=== PATIENT | male | born 1940 | race Caucasian/White ===

== ENCOUNTER 2018-01-07 23:12 | Inpatient (IN) ==
--- NOTE | 2018-01-07 23:33 | Emergency Department Note ---
Disposition Clinical Impression: Elevated bilirubin, Elevated transaminase level Abdominal pain Qualifiers: Abdominal location: right upper quadrant Qualified Code(s): R10.11 - Right upper quadrant pain Disposition: Admitted As Inpatient Condition: Good Time of Disposition: 02:15 Abdominal Pain HPI - General Chief Complaint: ED Abdominal Pain Stated Complaint: abdominal pain Time Seen by Provider: 01/07/18 23:20 Source: patient, EMS Mode of arrival: EMS Limitations: no limitations Nursing Notes Reviewed: Yes Vital Signs Reviewed: Yes - History of Present Illness HPI Narrative: Patient is a 77-year-old male with previous history of OK and cardiac stent placement. He presents today due to generalized abdominal pain, nausea, vomiting, no bowel movement for 6 days. Family states that he was recently seen at an side facility presently 6 days ago for nausea, vomiting, abdominal discomfort. They state that basic blood work and imaging was performed at that time and nothing was found. He was diagnosed with a viral illness and sent home. He had gradual improvement until 2 days ago where he started having fevers, chills, temperatures up to 103 at home, coughing, nonproductive cough, generalized abdominal pain. He continued to have no bowel movement. Denies any overt chest pain, diarrhea, dysuria, hematuria. He does have a history of umbilical hernia but states that it has been soft. Pain Scale: 8 - Related Data Home Medications Medication Instructions Recorded Confirmed Aspirin 81 mg PO DAILY 12/21/15 01/08/18 Atorvastatin Calcium [Lipitor] 80 mg PO DAILY 12/21/15 01/08/18 Cholecalciferol (Vitamin D3) 2,000 unit PO DAILY 12/21/15 01/08/18 [Vitamin D3] Gabapentin [Neurontin] 300 mg PO HS 12/21/15 01/08/18 Ibuprofen [Advil] 400 mg PO DAILY 12/21/15 01/08/18 Isosorbide DInitrate [Isosorbide 30 mg PO DAILY 12/21/15 01/08/18 Dinitrate] Lisinopril [Zestril] 10 mg PO DAILY 12/21/15 01/08/18 Metoprolol [Lopressor] 50 mg PO DAILY 12/21/15 01/08/18 Zolpidem [Ambien] 10 mg PO HS PRN 12/21/15 01/08/18 metFORMIN [Glucophage] 500 mg PO DAILY 12/21/15 01/08/18 Previous Rx's Medication Instructions Recorded Oxycodone HCl/Acetaminophen 1 each PO Q6H PRN #15 tablet 12/23/15 [Percocet 5-325 mg Tablet] Allergies Allergy/AdvReac Type Severity Reaction Status Date / Time No Known Allergies Allergy Verified 12/19/15 16:15 All systems ED: reviewed and negative except as stated. Constitutional: Reports: fever, chills Cardiovascular: Denies: chest pain Respiratory: Reports: cough. Denies: dyspnea Gastrointestinal: Reports: abdominal pain, nausea, vomiting, constipation. Denies: diarrhea Genitourinary: Denies: urgency, dysuria Abdominal Pain PMH - Past Medical History Medical history: Reports: coronary artery disease, diabetes, hypertension, myocardial infarction, renal disease Male Surgical History: Reports: herniorrhaphy Psychiatric history: Reports: no psych history - Social History Smoking status: Never smoker Alcohol use: Reports: occasionally Drug use: Reports: none Physical Exam - General Limitations: no limitations General appearance: alert, other (actively nauseated) - Head Head exam: atraumatic, normocephalic, normal inspection - Eye Eye exam: Present: normal appearance, PERRL, EOMI - ENT ENT exam: normal exam, normal oropharynx, mucous membranes moist - Neck Neck exam: Present: normal inspection, full ROM, trachea midline - Chest Chest inspection: Present: normal inspection, symmetric chest wall rise - Respiratory Respiratory exam: Present: normal lung sounds bilaterally - Cardiovascular Cardiovascular exam: Present: regular rate, normal rhythm, normal heart sounds - Abdominal Exam Abdominal exam: Present: soft, tenderness (Generalized abdominal tenderness), other (Umbilical hernia present, soft, reducible). Absent: distention, guarding , rebound, rigidity, Escobedo's sign, tenderness at McBurney's Point - Extremities Exam Extremities exam: Present: normal inspection, full ROM. Absent: tenderness, pedal edema - Neurological Exam Neurological exam: Present: alert, oriented X3 - Psychiatric Psychiatric exam: Present: normal affect, normal mood - Skin Skin exam: Present: warm, dry, intact, normal color Course Course Narrative: Vitals within normal limits. Physical exam shows generalized abdominal tenderness. Patient is actively nauseous on exam. No bowel movement for 6 days. Currently concern for possible bowel obstruction. Basic labs, LFTs, lipase, and CT abd pelvis ordered. Zofran and fentanyl ordered for pain and nausea control. 02:07 LFTs and total bili elevated. There is concern for possible cholecystitis. I discussed the case with surgeon deputy commonwealth's attorney, Dr. Peterson. We went over her presentation, exam, lab findings. She does recommend patient be admitted to medicine at this time and she will act as a consult tomorrow morning. Of note, patient has seen Dr. Jim in the past several years ago, but surgeon choice was discussed with the patient, and patient has chosen to be patient of Dr. Peterson for this issue. Will admit to hospitalist for further care. Abdomen/Pelvis CT 01/08/18 00:00 IMPRESSION: No significant colonic stool burden is identified. No evidence of mechanical bowel obstruction. No evidence of focal bowel wall thickening. Lobulated and folded appearance of the gallbladder appears similar to previous examination. There appears to be soft tissue density at the gallbladder fundus, which was present on previous examination. Follow-up nonemergent right upper quadrant ultrasound is recommended to exclude a polyp. Fat containing umbilical hernia, with minimal outpouching of the underlying small bowel. No evidence of inflammation. Fat containing bilateral inguinal hernias. Colonic diverticulosis. No CT evidence of acute diverticulitis. Hepatic steatosis. D/ / Chris Xavier MD / Chris Xavier MD Interpreting Provider: Chris Xavier MD Vital Signs Temperature 98.4 F 01/07/18 23:15 Pulse Rate 83 01/07/18 23:15 Respiratory Rate 18 01/07/18 23:15 Blood Pressure 120/78 01/07/18 23:15 O2 Sat by Pulse Oximetry 95 01/07/18 23:15 Temperature 97.5 F L 01/08/18 03:35 Pulse Rate 75 01/08/18 03:35 Respiratory Rate 18 01/08/18 03:35 Blood Pressure 147/88 01/08/18 03:35 O2 Sat by Pulse Oximetry 92 01/08/18 03:35 Oxygen Delivery Oxygen Delivery Room Air Abdominal Pain - MDM Narrative Medical decision making narrative: Vitals within normal limits. Physical exam shows generalized abdominal tenderness. Patient is actively nauseous on exam. No bowel movement for 6 days. Currently concern for possible bowel obstruction. Basic labs, LFTs, lipase, and CT abd pelvis ordered. Zofran and fentanyl ordered for pain and nausea control. 02:07 LFTs and total bili elevated. There is concern for possible cholecystitis. I discussed the case with surgeon deputy commonwealth's attorney, Dr. Peterson. We went over her presentation, exam, lab findings. She does recommend patient be admitted to medicine at this time and she will act as a consult tomorrow morning. Of note, patient has seen Dr. Jim in the past several years ago, but surgeon choice was discussed with the patient, and patient has chosen to be patient of Dr. Peterson for this issue. Will admit to hospitalist for further care. - Medical Records Medical records reviewed: Yes I reviewed the patient's medical records. - Lab Data Lab results reviewed: Yes I reviewed the patient's lab results. Result diagrams: 01/07/18 23:40 01/07/18 23:40 Lab Results 01/07/18 01/07/18 01/07/18 Range/Units 23:40 23:40 23:40 WBC 3.8 L (4.3-11.1) K/mcL RBC 4.83 (4.19-5.50) M/mcL Hgb 15.1 (12.9-16.9) g/dL Hct 42.8 (37.5-50.1) % MCV 88.6 (83.0-100.0) fL MCH 31.3 (28.0-33.3) pg MCHC 35.3 (31.6-35.5) g/dL RDW 12.7 (11.5-14.5) % Plt Count 104 L (140-400) K/mcL MPV 9.8 (9.4-12.4) fL Immature Gran % 4.5 H (0-4) % Seg Neutrophils % 68.3 % Lymphocytes % 19.9 % Monocytes % 5.2 % Eosinophils % 0.8 % Basophils % 1.3 % Neutrophils # 2.6 (1.6-8.9) K/mcL Lymphocytes # 0.8 (0.6-4.6) K/mcL Monocytes # 0.2 (0.0-1.3) K/mcL Eosinophils # 0.0 (0.0-0.6) K/mcL Basophils # 0.1 (0.0-0.2) K/mcL Reactive Lymphocytes Present A (Not Present) Platelet Estimate Decreased L (Normal) Sodium 128 L (136-145) mEq/L Potassium 3.9 (3.5-5.1) mEq/L Chloride 100 (98-107) mEq/L Carbon Dioxide 18 L (23-29) mEq/L BUN 22 (8-23) mg/dL Creatinine 1.20 (0.70-1.30) mg/dL Est GFR ( Amer) > 60 (> 60) Est GFR (Non-Af Amer) 59 L (> 60) BUN/Creatinine Ratio 18 (6-26) Glucose 130 H (70-105) mg/dL Calculated Osmolality 271 L (280-300) Lactic Acid (0.5-2.2) mmol/L Calcium 8.8 (8.6-10.3) mg/dL Total Bilirubin 1.4 H (0.3-1.0) mg/dL Direct Bilirubin 0.3 H (0.0-0.2) mg/dL Indirect Bilirubin 1.1 (0.0-1.2) mg/dL AST 130 H (13-39) Units/L ALT 124 H (7-52) Units/L Alkaline Phosphatase 254 H (34-104) Units/L Troponin I < 0.03 (< 0.04) ng/mL Serum Total Protein 6.1 L (6.4-8.9) g/dL Albumin 3.7 (3.5-5.7) g/dL Globulin 2.4 (2.4-3.5) g/dL Albumin/Globulin Ratio 1.5 (1.1-2.2) Lipase 23 (11-82) Units/L Urine Color Dark Yellow (Yellow) Urine Clarity Clear (Clear) Urine pH 6.0 (5.0-8.0) pH Units Ur Specific Coello 1.022 (1.010-1.025) Urine Protein 30 H (Neg-Trace) mg/dL Urine Glucose (UA) Normal (Normal) mg/dL Urine Ketones Trace H (Negative) mg/dL Urine Blood Negative (Negative) Urine Nitrite Negative (Negative) Urine Bilirubin Small H (Negative) Urine Urobilinogen 4.0 H (Normal) mg/dL Ur Leukocyte Esterase Negative (Negative) Urine Microscopic RBC 3-5 H (0-3) per hpf Urine Microscopic WBC 0-3 (0-3) per hpf Ur Squamous Epith Cells Moderate H (None-Few) per lpf Urine Bacteria None Seen (None-Few) per hpf Hyaline Casts None Seen (None-Few) per lpf Ur Culture Indicated? NO (NO) 01/08/18 Range/Units 00:21 WBC (4.3-11.1) K/mcL RBC (4.19-5.50) M/mcL Hgb (12.9-16.9) g/dL Hct (37.5-50.1) % MCV (83.0-100.0) fL MCH (28.0-33.3) pg MCHC (31.6-35.5) g/dL RDW (11.5-14.5) % Plt Count (140-400) K/mcL MPV (9.4-12.4) fL Immature Gran % (0-4) % Seg Neutrophils % % Lymphocytes % % Monocytes % % Eosinophils % % Basophils % % Neutrophils # (1.6-8.9) K/mcL Lymphocytes # (0.6-4.6) K/mcL Monocytes # (0.0-1.3) K/mcL Eosinophils # (0.0-0.6) K/mcL Basophils # (0.0-0.2) K/mcL Reactive Lymphocytes (Not Present) Platelet Estimate (Normal) Sodium (136-145) mEq/L Potassium (3.5-5.1) mEq/L Chloride (98-107) mEq/L Carbon Dioxide (23-29) mEq/L BUN (8-23) mg/dL Creatinine (0.70-1.30) mg/dL Est GFR ( Amer) (> 60) Est GFR (Non-Af Amer) (> 60) BUN/Creatinine Ratio (6-26) Glucose (70-105) mg/dL Calculated Osmolality (280-300) Lactic Acid 1.6 (0.5-2.2) mmol/L Calcium (8.6-10.3) mg/dL Total Bilirubin (0.3-1.0) mg/dL Direct Bilirubin (0.0-0.2) mg/dL Indirect Bilirubin (0.0-1.2) mg/dL AST (13-39) Units/L ALT (7-52) Units/L Alkaline Phosphatase (34-104) Units/L Troponin I (< 0.04) ng/mL Serum Total Protein (6.4-8.9) g/dL Albumin (3.5-5.7) g/dL Globulin (2.4-3.5) g/dL Albumin/Globulin Ratio (1.1-2.2) Lipase (11-82) Units/L Urine Color (Yellow) Urine Clarity (Clear) Urine pH (5.0-8.0) pH Units Ur Specific Coello (1.010-1.025) Urine Protein (Neg-Trace) mg/dL Urine Glucose (UA) (Normal) mg/dL Urine Ketones (Negative) mg/dL Urine Blood (Negative) Urine Nitrite (Negative) Urine Bilirubin (Negative) Urine Urobilinogen (Normal) mg/dL Ur Leukocyte Esterase (Negative) Urine Microscopic RBC (0-3) per hpf Urine Microscopic WBC (0-3) per hpf Ur Squamous Epith Cells (None-Few) per lpf Urine Bacteria (None-Few) per hpf Hyaline Casts (None-Few) per lpf Ur Culture Indicated? (NO) - Radiology Data Radiology results reviewed: Yes I reviewed the patient's radiology results. - EKG Data EKG attestation: Yes I reviewed and interpreted this EKG. EKG results narrative: Normal sinus rhythm. Rate 82. NV 154. QRS 93. QTC 418. Normal axis. No acute ST elevation or depression. 01/07/2018 at 23:33. S.B.A.R. - S.B.A.R. Situation: Demographics, MOA Background: Presenting Complaint, Relevant PMH, Meds, & Allergies Assessment: Vital Signs, Course and respsone to treatment, Exam Concerns, Patient/Family Expectation, Pertinant Lab Results Recommendation: Barrier(s) to disposition, Recommendation based on pending studies, treatments, or consults Attestation Statement - Attestation Attestation: I examined this patient and my medical decision-making was reviewed with the Resident Physician. I agree with the documented findings, disposition and treatment plan as described except to the extent set forth below. Findings consistent with possible early acute cholecystitis. There is transaminitis as well as elevated bilirubin levels. This is beyond normal elevation. The patient will be admitted to the hospitalist team with surgical consultation. We did speak with the on-call surgeon.
[2018-01-07 23:51] LABS: Basophils # 0.1 K/mcL (0.0-0.2); Basophils % 1.3 %; Eosinophils % 0.8 %; Hematocrit 42.8 % (37.5-50.1); Hemoglobin 15.1 g/dL (12.9-16.9); Immature Granulocytes % 4.5 % (0-4); Lymphocytes # 0.8 K/mcL (0.6-4.6); Lymphocytes % 19.9 %; Mean Corpuscular HGB Conc 35.3 g/dL (31.6-35.5); Mean Corpuscular Hemoglobin 31.3 pg (28.0-33.3); Mean Corpuscular Volume 88.6 fL (83.0-100.0); Mean Platelet Volume 9.8 fL (9.4-12.4); Monocytes # 0.2 K/mcL (0.0-1.3); Monocytes % 5.2 %; Neutrophils # 2.6 K/mcL (1.6-8.9); Platelet Count 104 K/mcL (140-400); Red Blood Count 4.83 M/mcL (4.19-5.50); Red Cell Distribution Width 12.7 % (11.5-14.5); Segmented Neutrophils % 68.3 %
[2018-01-08 00:02] LABS: Bilirubin,Urine Small (Negative); Blood,Urine Negative (Negative); Clarity,Urine Clear (Clear); Color,Urine Dark Yellow (Yellow); Glucose,Urine (UA) Normal (Normal); Ketones,Urine Trace mg/dL (Negative); Leukocyte Esterase,Urine Negative (Negative); Nitrite,Urine Negative (Negative); Protein,Urine 30 mg/dL (Neg-Trace); Specific Gravity,Urine 1.022 (1.010-1.025)
[2018-01-08 00:04] LABS: Bacteria,Urine None Seen per hpf (None-Few); Hyaline Casts,Urine None Seen per lpf (None-Few); Squamous Epithelial Cell,Urine Moderate per lpf (None-Few); WBC,Urine 0-3 per hpf (0-3)
[2018-01-08 00:07] LABS: Reactive Lymphocytes Present (Not Present)
[2018-01-08 00:08] LABS: Platelet Estimate Decreased (Normal)
[2018-01-08 00:13] LABS: Alanine Aminotransferase 124 Units/L (7-52); Albumin 3.7 g/dL (3.5-5.7); Albumin/Globulin Ratio 1.5 (1.1-2.2); Alkaline Phosphatase 254 Units/L (34-104); Aspartate Amino Transferase 130 Units/L (13-39); BUN/Creatinine Ratio 18 (6-26); Bilirubin,Direct 0.3 mg/dL (0.0-0.2); Bilirubin,Indirect 1.1 mg/dL (0.0-1.2); Bilirubin,Total 1.4 mg/dL (0.3-1.0); Blood Urea Nitrogen 22 mg/dL (8-23); Calcium 8.8 mg/dL (8.6-10.3); Carbon Dioxide 18 mEq/L (23-29); Chloride 100 mEq/L (98-107); Globulin 2.4 g/dL (2.4-3.5); Glucose 130 mg/dL (70-105); Lipase 23 Units/L (11-82); Osmolality,Calculated 271 (280-300); Potassium 3.9 mEq/L (3.5-5.1); Sodium 128 mEq/L (136-145); Total Protein 6.1 g/dL (6.4-8.9); Troponin I < 0.03 ng/mL (< 0.04); eGFR For African Americans > 60 (> 60); eGFR For Non-African Americans 59 (> 60)
[2018-01-08] MEDS ORDERED: 0.9 % Sodium Chloride 1,000 ML ONE (00:48)
[2018-01-08] MEDS ORDERED: cefOXitin 2,000 MG in 0.9 % Sodium Chloride Mini Bag 100 ML IVP ONE (02:22)
[2018-01-08] MEDS: 0.9 % Sodium Chloride 1,000 ML IVC SCH (02:41)
[2018-01-08] MEDS ORDERED: Ondansetron 4 MG/2 ML VIAL IVP STA (03:07)
[2018-01-08] MEDS ORDERED: Ondansetron 4 MG/2 ML VIAL IVP PRN (03:07)
[2018-01-08] MEDS ORDERED: Naloxone 0.4 MG/ML INJ IVP PRN ×2 (03:08)
[2018-01-08] MEDS ORDERED: *HR* Metoprolol 5 MG/5 ML VIAL IVP PRN (03:22)
[2018-01-08] MEDS ORDERED: Dextrose Gel 15 GM/37.5 ML TUBE PO PRN ×2 (03:23)
[2018-01-08] MEDS ORDERED: D5% in Water 1,000 ML IVC PRN (03:23)
[2018-01-08] MEDS ORDERED: *HR* Dextrose 50 % in Water (Syg) 50 ML SYRINGE IVP PRN (03:23)
[2018-01-08] MEDS ORDERED: Pantoprazole 40 MG VIAL IVP STA (03:24)
[2018-01-08] MEDS: Insulin LISPRO 300 UNITS/3 ML VIAL SQ SCH ×4 (03:55→17:21)
[2018-01-08 07:08] LABS: Hematocrit 41.8 % (37.5-50.1); Mean Corpuscular HGB Conc 33.5 g/dL (31.6-35.5); Mean Corpuscular Hemoglobin 30.2 pg (28.0-33.3); Mean Corpuscular Volume 90.3 fL (83.0-100.0); Red Blood Count 4.63 M/mcL (4.19-5.50); Red Cell Distribution Width 12.9 % (11.5-14.5)
[2018-01-08 07:10] LABS: Platelet Count 96 K/mcL (140-400)
[2018-01-08 07:28] LABS: BUN/Creatinine Ratio 17 (6-26); Blood Urea Nitrogen 20 mg/dL (8-23); Calcium 8.3 mg/dL (8.6-10.3); Carbon Dioxide 21 mEq/L (23-29); Chloride 103 mEq/L (98-107); Glucose 98 mg/dL (70-105); Osmolality,Calculated 279 (280-300); Potassium 3.9 mEq/L (3.5-5.1); Sodium 133 mEq/L (136-145); eGFR For African Americans > 60 (> 60); eGFR For Non-African Americans > 60 (> 60)
--- NOTE | 2018-01-08 07:35 | Internal Med History&Physical ---
Date of Encounter: 01/08/18 Time of Encounter: 05:07 Internal Medicine - H&P: HPI Chief complaint: "Nauseous and not feeling good" Admitted From: Emergency Dept Plans for Post Hospital Care: Home History of present illness: Mr. Campos is a 77 year old male who presented to ED with worsening abdominal pain and nausea. He states that he starting having these symptoms about 1 week ago when he was at the [facility]. It got so severe today that he decided to come to the ED. He has a cardiac history, but he denies any chest pain today and troponin is WNL. He had a fever few days ago. Today, he denies chest pain , SOB, fever, chills, and focal neurologic deficits. Pain is better when lying in certain position. Pain is worse with palpation of abdomen. CT abdomen/ pelvis showed no bowel obstruction, but did show lobulated and folded appearance of the gallbladder similar to previous exam. There is a soft tissue density at gall bladder fundus. Only fat in umbilical hernia. Surgery was consulted by ED physician and will see him in AM in case he has cholecystitis. He got 1 dose of cefoxitin in ED. Past Med Surg Social Fam HX - Past Medical History Attestation: Yes The following information was validated with the patient. Medical history: coronary artery disease, diabetes, hypertension, myocardial infarction, renal disease Psychiatric history: no psych history - Past Surgical History Surgical History: orthopedic, other - Social History Smoking Status: Never smoker Smokeless Tobacco Status: No Alcohol use: occasionally Drug use: none - Family History Mother Hx Family Cancer: Yes - Additional Family History Additional family history: Family history reviewed with patient. Internal Medicine - H&P: Meds Aspirin 81 mg PO DAILY 12/21/15 [History] Atorvastatin Calcium [Lipitor] 80 mg PO DAILY 12/21/15 [History] Cholecalciferol (Vitamin D3) [Vitamin D3] 2,000 unit PO DAILY 12/21/15 [History] Gabapentin [Neurontin] 300 mg PO HS 12/21/15 [History] Ibuprofen [Advil] 400 mg PO DAILY 12/21/15 [History] Isosorbide DInitrate [Isosorbide Dinitrate] 30 mg PO DAILY 12/21/15 [History] Lisinopril [Zestril] 10 mg PO DAILY 12/21/15 [History] Metoprolol [Lopressor] 50 mg PO DAILY 12/21/15 [History] Zolpidem [Ambien] 10 mg PO HS PRN 12/21/15 [History] metFORMIN [Glucophage] 500 mg PO DAILY 12/21/15 [History] Oxycodone HCl/Acetaminophen [Percocet 5-325 mg Tablet] 1 each PO Q6H PRN #15 tablet 12/23/15 [Rx] 3 Allergy/AdvReac Type Severity Reaction Status Date / Time No Known Allergies Allergy Verified 12/19/15 16:15 All Systems PM: A 10-system review of systems was performed and is negative for pertinent findings except as documented above in the HPI. - Constitutional Vitals: Temp Pulse Resp BP Pulse Ox 98.8 F 78 16 129/79 91 01/08/18 06:20 01/08/18 06:20 01/08/18 06:20 01/08/18 06:20 01/08/18 06:20 General appearance: Present: cooperative, mild distress, A&O X 3, pleasant, answers questions appropriately Exam: Due to abdominal pain and nausea - Head Head exam: Present: atraumatic, normal inspection, normocephalic - Eye Eye exam: Present: EOMI, normal appearance, PERRL. Absent: conjunctival injection, nystagmus, scleral icterus - ENT ENT exam: Present: mucous membranes moist, normal external ear exam, normal oropharynx - Neck Neck exam general surgery: Present: supple, trachea midline. Absent: lymphadenopathy, tenderness, thyromegaly - Respiratory Respiratory exam: Present: CTAB. Absent: accessory muscle use, rales, rhonchi, wheezes Additional comments: Normal WOB - Cardiovascular Cardiovascular exam: Present: RRR, +S1, +S2. Absent: diastolic murmur, gallop, rubs, systolic murmur - GI/Abdominal GI/Abdominal exam: Present: hypoactive bowel sounds, soft. Absent: distended, hepatomegaly, mass, splenomegaly Additional comments: RUQ TTP without rebound and guarding - Neurological Exam Neurological exam: Present: alert, CN II-XII intact, oriented X3, no focal deficits, strengths equal and symetr throughout. Absent: altered, motor sensory deficit, facial droop, speech deficit - Psychiatric Psychiatric exam: Present: normal affect, normal mood. Absent: agitated, anxious, depressed - Skin Skin exam: Present: dry, intact, rash, warm. Absent: cyanosis Internal Med - H&P Results - Labs CBC & Chem 7: 01/08/18 05:00 01/07/18 23:40 Labs: Short CBC 01/08/18 Range/Units 05:00 WBC 3.2 L (4.3-11.1) K/mcL Hgb 14.0 (12.9-16.9) g/dL Hct 41.8 (37.5-50.1) % Plt Count 96 L (140-400) K/mcL - Assessment and plan (1) Acute cholecystitis Current Visit: Yes Status: Acute Assessment and plan: Admit as inpatient. General surgery consulted by ED; appreciate their help. Continue cefoxitin. Continue IVF. Keep NPO. Zofran IV PRN nausea/vomiting. IV protonix daily for GI prophylaxis. Sublingual oxycodone PRN pain. Will get non-emergent gallbladder/liver ultrasound as recommended by radiologist. Repeat labwork in AM. (2) Hyponatremia Current Visit: Yes Status: Acute Assessment and plan: NPO at this time, so fluid restricted. Continue IV NS at 125 ml/hr. Will check serial Na for now so as not to overcorrect. (3) HTN (hypertension) Current Visit: Yes Status: Chronic Assessment and plan: Holding home medications due to NPO. Will add a PRN lopressor IV for hypertension. Qualifiers: Hypertension type: essential hypertension Qualified Code(s): I10 - Essential (primary) hypertension (4) DM type 2 (diabetes mellitus, type 2) Current Visit: Yes Status: Chronic Assessment and plan: NPO for now in case needs surgery. Hold home medications. Start accuchecks and low dose SSI Q6H. Qualifiers: Diabetes mellitus superintendent container terminal insulin use: without prison use Diabetes mellitus complication status: with unspecified complications Qualified Code(s) : E11.8 - Type 2 diabetes mellitus with unspecified complications (5) Abdominal pain Current Visit: Yes Status: Acute Assessment and plan: Management as per above. Qualifiers: Abdominal location: right upper quadrant Qualified Code(s): R10.11 - Right upper quadrant pain (6) Elevated bilirubin Current Visit: Yes Status: Acute Assessment and plan: Management as per above. (7) Elevated transaminase level Current Visit: Yes Status: Acute Assessment and plan: Management as per above. (8) DVT prophylaxis Current Visit: Yes Status: Acute Assessment and plan: Hold anticoagulation for now in case he needs to go to surgery. Start SCDs. - Time Spent With Patient Total time spent is greater than 50% in coordination of care (as documented) at patient's floor/unit and/or counseling patient: less than 15 minutes
[2018-01-08 07:55] LABS: Lymphocytes # 0.7 K/mcL (0.6-4.6); Monocytes # 0.1 K/mcL (0.0-1.3); Neutrophils # 2.4 K/mcL (1.6-8.9); Platelet Estimate Slight Decrease (Normal)
[2018-01-08] MEDS: cefOXitin 1,000 MG in Water for inj. (sterile) 20 ML 10 ML IVPB SCH ×2 (10:16→17:40)
[2018-01-08 10:51] LABS: Albumin 3.2 g/dL (3.5-5.7); Albumin/Globulin Ratio 1.3 (1.1-2.2); Bilirubin,Direct 0.3 mg/dL (0.0-0.2); Bilirubin,Indirect 0.7 mg/dL (0.0-1.2); Globulin 2.5 g/dL (2.4-3.5); Total Protein 5.7 g/dL (6.4-8.9)
[2018-01-08 12:50] LABS: Estimated Average Glucose 166 mg/dl; Hemoglobin A1C 7.4 %
[2018-01-08 13:58] LABS: INR 1.1; Prothrombin Time 12.2 Seconds (9.4-12.1)
--- NOTE | 2018-01-08 14:34 | Internal Med Progress Note ---
<Mark Anthony Telles - Last Filed: 01/08/18 15:11> Date of Encounter: 01/08/18 Time of Encounter: 14:30 - Assessment and plan (1) Acute cholecystitis Current Visit: Yes Status: Suspected Assessment and plan: 77 from male presented with nausea vomiting, right upper quadrant abdominal pain Positive Escobedo's sign CT abdomen pelvis showed lobulated folded gallbladder appearance, hepatic steatosis Gallbladder ultrasound shows cholelithiasis without evidence of acute cholecystitis Suspected Elevated AST, ALTs, alk phosphatase. Lipase within normal limits. Awaiting surgery recommendations. (2) Elevated bilirubin Current Visit: Yes Status: Acute Assessment and plan: Likely secondary to above. (3) Hyponatremia Current Visit: Yes Status: Acute Assessment and plan: unclear etiology improving currently send urine sodium and osmolality continue to monitor (4) HTN (hypertension) Current Visit: Yes Status: Chronic Assessment and plan: continue home medications Qualifiers: Hypertension type: essential hypertension Qualified Code(s): I10 - Essential (primary) hypertension (5) DM type 2 (diabetes mellitus, type 2) Current Visit: Yes Status: Chronic Assessment and plan: NPO continue sliding scale insulin Q6h Qualifiers: Diabetes mellitus jail insulin use: without superintendent container terminal use Diabetes mellitus complication status: with unspecified complications Qualified Code(s) : E11.8 - Type 2 diabetes mellitus with unspecified complications (6) DVT prophylaxis Current Visit: Yes Status: Acute Assessment and plan: heparin sq (7) Chest pain Current Visit: Yes Status: Acute Assessment and plan: patient had chest pain this afternoon atypical troponon WNL EKG: NSR with out st-t wave elevation previous [facility] 08/17/2017 LVEF of 60-65% with mild left ventricular diastolic dysfunction, without wall motion abnormalities, concentric increase in left ventricular wall thickness, mild aortic regurgitation and dilated ascending aorta measuring 4.0 cm. plan: chest cta to assess ascending aortic aneurysm, stress test before undergoing any surgery stress test in AM. Continue aspirin, statin, Imdur, metoprolol, lisinopril. Qualifiers: Chest pain type: unspecified Qualified Code(s): R07.9 - Chest pain, unspecified - Time Spent With Patient Total time spent is greater than 50% in coordination of care (as documented) at patient's floor/unit and/or counseling patient: - Subjective Interval history: 77-year-old male presented with abdominal pain and nausea and vomiting. Since admission patient's symptoms have improved. Currently patient denies nausea vomiting. Has mild abdominal pain and right upper quadrant. Later in the afternoon around 1:30 PM patient reported chest pain to the nurse that radiated to the left side. Troponin was ordered and was 0.03. - Constitutional Vitals: Temp Pulse Resp BP Pulse Ox 98.2 F 74 16 124/79 93 01/08/18 10:25 01/08/18 10:25 01/08/18 10:25 01/08/18 10:25 01/08/18 10:25 General appearance: Present: cooperative, mild distress, A&O X 3, pleasant, answers questions appropriately - Other Additional findings: General: without distress HEENT: Head atraumatic, normocephalic, EOMI, PERRL, neck nontender to palpation , absent lymphadenopathy, Moist Mucous Membranes, Heart: Regular rate and rhythm with no murmur Lungs: Clear to auscultation bilaterally Abdomen: Soft nontender, distended, positive bowel sounds. Umbilical hernia. Skin: warm and dry, absent rash Extremities: Absent pedal edema, Neuro: Alert oriented 3 Vascular: Pedal and radial pulses 2 out of 4 Internal Medicine: Result - Labs CBC & Chem 7: 01/08/18 05:00 01/08/18 05:00 Labs: Short CBC 01/08/18 Range/Units 05:00 WBC 3.2 L (4.3-11.1) K/mcL Hgb 14.0 (12.9-16.9) g/dL Hct 41.8 (37.5-50.1) % Plt Count 96 L (140-400) K/mcL Neutrophils # 2.4 (1.6-8.9) K/mcL BMP 01/08/18 01/08/18 05:00 05:00 Sodium 134 L 133 L Potassium 3.9 Chloride 103 Carbon Dioxide 21 L BUN 20 Creatinine 1.16 Glucose 98 Calcium 8.3 L Cardiac Enzymes 01/08/18 Range/Units 13:39 Troponin I < 0.03 (< 0.04) ng/mL Liver Function 01/08/18 Range/Units 10:21 Total Bilirubin 1.0 (0.3-1.0) mg/dL Direct Bilirubin 0.3 H (0.0-0.2) mg/dL AST 96 H (13-39) Units/L ALT 99 H (7-52) Units/L Alkaline Phosphatase 204 H (34-104) Units/L Albumin 3.2 L (3.5-5.7) g/dL - ABG Interpretation ABG results: PT/INR, D-dimer PT 12.2 Seconds (9.4-12.1) H 01/08/18 13:39 - Impressions Impressions Gallbladder Ultrasound 01/08/18 08:10 IMPRESSION: Cholelithiasis without sonographic evidence of acute cholecystitis. Slightly increased echogenicity of the right kidney can be seen with medical renal disease. D/ / 01/08/2018 11:25:40 Trey Hampton MD / timothy Interpreting Provider: Trey Hampton MD Consult Discharge Plan - Plan Referrals: John Schumacher DO [Primary Care Provider] - <Howard Stark - Last Filed: 01/08/18 18:19> Date of Encounter: 01/08/18 - Assessment and plan (1) Acute cholecystitis Current Visit: Yes Status: Suspected (2) Hyponatremia Current Visit: Yes Status: Acute (3) HTN (hypertension) Current Visit: Yes Status: Chronic Qualifiers: Hypertension type: essential hypertension Qualified Code(s): I10 - Essential (primary) hypertension (4) DM type 2 (diabetes mellitus, type 2) Current Visit: Yes Status: Chronic Qualifiers: Diabetes mellitus jail insulin use: without superintendent container terminal use Diabetes mellitus complication status: with unspecified complications Qualified Code(s) : E11.8 - Type 2 diabetes mellitus with unspecified complications (5) DVT prophylaxis Current Visit: Yes Status: Acute (6) Chest pain Current Visit: Yes Status: Acute Qualifiers: Chest pain type: unspecified Qualified Code(s): R07.9 - Chest pain, unspecified (7) Elevated bilirubin Current Visit: Yes Status: Acute (8) Transaminitis Current Visit: Yes Status: Acute - Time Spent With Patient Total time spent is greater than 50% in coordination of care (as documented) at patient's floor/unit and/or counseling patient: - Constitutional Vitals: Temp Pulse Resp BP Pulse Ox 98.2 F 76 16 138/82 96 01/08/18 14:55 01/08/18 14:55 01/08/18 14:55 01/08/18 14:55 01/08/18 14:55 Internal Medicine: Result - Labs CBC & Chem 7: 01/08/18 05:00 01/08/18 15:38 Labs: Short CBC 01/08/18 Range/Units 05:00 WBC 3.2 L (4.3-11.1) K/mcL Hgb 14.0 (12.9-16.9) g/dL Hct 41.8 (37.5-50.1) % Plt Count 96 L (140-400) K/mcL Neutrophils # 2.4 (1.6-8.9) K/mcL BMP 01/08/18 01/08/18 01/08/18 05:00 05:00 15:38 Sodium 134 L 133 L 135 L Potassium 3.9 Chloride 103 Carbon Dioxide 21 L BUN 20 Creatinine 1.16 Glucose 98 Calcium 8.3 L Cardiac Enzymes 01/08/18 Range/Units 13:39 Troponin I < 0.03 (< 0.04) ng/mL Liver Function 01/08/18 Range/Units 10:21 Total Bilirubin 1.0 (0.3-1.0) mg/dL Direct Bilirubin 0.3 H (0.0-0.2) mg/dL AST 96 H (13-39) Units/L ALT 99 H (7-52) Units/L Alkaline Phosphatase 204 H (34-104) Units/L Albumin 3.2 L (3.5-5.7) g/dL - ABG Interpretation ABG results: PT/INR, D-dimer PT 12.2 Seconds (9.4-12.1) H 01/08/18 13:39 - Impressions Impressions Gallbladder Ultrasound 01/08/18 08:10 IMPRESSION: Cholelithiasis without sonographic evidence of acute cholecystitis. Slightly increased echogenicity of the right kidney can be seen with medical renal disease. D/ / 01/08/2018 11:25:40 Trey Hampton MD / timothy Interpreting Provider: Trey Hampton MD - Attending Attestation I examined this patient and my medical decision-making was reviewed with the Resident Physician on 01/08/18. I agree with the documented findings, disposition and treatment plan as described except to the extent set forth below. Mr Campos is currently admitted for possible cholecystitis. He remains moderate to high risk due to potential for worsening clinical status. Mr Campos is having some L chest and back pain. No fever. Hungry. No diarrhea. Has been taking 2000mg Tylenol at least three times daily for weeks ( no longer getting pain meds). Exam alert Comfortable at this time Mucus membranes dry Heart reg Lungs clear currently Abd distended Echo - 08/17 shows dilated aorta I/P 1 abd pain/chest pain - check CT of chest and aorta 2. possible cholecystitis 3. CAD Further diagnoses and plan as above.
[2018-01-08] MEDS ORDERED: Isovue-370 500 ML INFUS..BTL IV ONE (15:11)
--- NOTE | 2018-01-08 15:29 | General Surgery Consult Note ---
<Avi Cullen - Last Filed: 01/08/18 15:16> Date of Encounter: 01/08/18 Time of Encounter: 08:20 Assessment and Plan (1) Abdominal pain Current Visit: Yes Status: Acute Abdominal CT showed lobulated and folded appearanceof the gallbladder which prompted us to get an U/S of the gallbladder, showing evidence of cholelithiasis but without acute cholecystitis. He had an elevated Alk phos of 254 and AST of 130 and ALT of 124. On exam, patient did not exhibit any abdominal pain. A few hours after, patient proceeded to complain of chest pain. A stat EKG was done which showed no acute ischemic changes. A stat troponin was ordered which was negative. Given his cardiac history of prior WI and 2 coronary stents, it is recommended that cardiology become involved in this case for evaluation. We will go ahead and proceed with a HIDA scan to rule out acute cholecystitis. Abdomen/Pelvis CT 01/08/18 00:00 IMPRESSION: 1. No significant colonic stool burden is identified. No evidence of mechanical bowel obstruction. No evidence of focal bowel wall thickening. 2. Lobulated and folded appearance of the gallbladder appears similar to previous examination. There appears to be soft tissue density at the gallbladder fundus, which was present on previous examination. Follow-up nonemergent right upper quadrant ultrasound is recommended to exclude a polyp or other lesions. 3. Fat containing umbilical hernia, with minimal outpouching of the underlying small bowel. No evidence of inflammation. 4. Fat containing bilateral inguinal hernias. 5. Colonic diverticulosis. No CT evidence of acute diverticulitis. D/ / 01/08/2018 04:56:19 Chris Xavier MD / yer Interpreting Provider: Chris Xavier MD Gallbladder Ultrasound 01/08/18 08:10 IMPRESSION: Cholelithiasis without sonographic evidence of acute cholecystitis. Slightly increased echogenicity of the right kidney can be seen with medical renal disease. D/ / 01/08/2018 11:25:40 Trey Hampton MD / timothy Interpreting Provider: Trey Hampton MD Qualifiers: Abdominal location: right upper quadrant Qualified Code(s): R10.11 - Right upper quadrant pain (2) Chest pain Current Visit: Yes Status: Acute See plan above. 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 Patient states that about 1 week ago he was at the [place] on vacation when he suddenly started to experience abdominal pain and nausea. He denies any vomiting. He denies any post-prandial pain. He went to the hospital there where an u/s was performed and found that he had gallstones present. They recommended that ramya f/u with outpatient. Patient says that he also had a fever around that time, being 104 F. Right now he denies any nausea, vomiting, or chest pain. He admits to some minor SOB with exertion. He denies any diarrhea. Patient also admits to some dysphagia (to both solid and liquids) for the past 6 months. Last EGD was over 10 years ago and last colonoscopy was 5 years ago. Past Med Surg Social Fam HX - Past Medical History Medical history: coronary artery disease, diabetes, hypertension, myocardial infarction, renal disease Psychiatric history: no psych history - Past Surgical History Surgical History: orthopedic, other - Social History Smoking Status: Never smoker Smokeless Tobacco Status: No Alcohol use: occasionally Drug use: none - Family History Mother Hx Family Cancer: Yes Medications and Allergies Aspirin 81 mg PO DAILY 12/21/15 [History] Atorvastatin Calcium [Lipitor] 80 mg PO DAILY 12/21/15 [History] Cholecalciferol (Vitamin D3) [Vitamin D3] 2,000 unit PO DAILY 12/21/15 [History] Gabapentin [Neurontin] 300 mg PO TID 12/21/15 [History] Ibuprofen [Advil] 400 mg PO DAILY PRN 12/21/15 [History] Lisinopril [Zestril] 10 mg PO DAILY 12/21/15 [History] Zolpidem [Ambien] 10 mg PO HS PRN 12/21/15 [History] metFORMIN [Glucophage] 500 mg PO DAILY 12/21/15 [History] Isosorbide MONOnitrate (24 HR) [Imdur] 30 mg PO DAILY 01/08/18 [History] Metoprolol XL (24 HR) Succ [Toprol XL] 50 mg PO DAILY 01/08/18 [History] Omeprazole [PriLOSEC] 20 mg PO DAILY 01/08/18 [History] Oxycodone HCl/Acetaminophen [Percocet 5-325 mg Tablet] 1 tab PO DAILY PRN [History] 3 Allergy/AdvReac Type Severity Reaction Status Date / Time No Known Allergies Allergy Verified 12/19/15 16:15 Review of Systems All systems PM: The remainder of the systems were reviewed and are negative - Gastrointestinal abdominal pain, nausea, no diarrhea, no vomiting General Surgery Exam VITAL SIGNS: Reviewed. See [facility] GENERAL: no apparent distress. HEENT: [Normocephalic, PER, EOMi, oropharynx pink/moist, no JVD noted.] CV: b/l rad pulses 2+, RRR, no murmurs or gallops, no JVD RESPIRATORY: CTAB without wheezes, rales, or rhonchi ABD: soft, , non-tender, no rebound/guarding/rigidity, no peritoneal signs EXTREMITY: grossly normal motor function, no pedal edema, peripheral pulses 2+ b /l NEUROLOGIC EXAM: AOx3, obeys commands, no speech deficits. PSYCHIATRIC: normal mood and affect SKIN: no gross lesions, rashes, or skin changes Initial Vital Signs Temp Pulse Resp BP Pulse Ox 98.4 F 83 18 120/78 95 01/07/18 23:15 01/07/18 23:15 01/07/18 23:15 01/07/18 23:15 01/07/18 23:15 Exam Initial Vital Signs Temp Pulse Resp BP Pulse Ox 98.4 F 83 18 120/78 95 01/07/18 23:15 01/07/18 23:15 01/07/18 23:15 01/07/18 23:15 01/07/18 23:15 Results - Labs 01/08/18 05:00 01/08/18 05:00 Abnormal lab results WBC 3.2 K/mcL (4.3-11.1) L 01/08/18 05:00 Plt Count 96 K/mcL (140-400) L 01/08/18 05:00 Immature Gran % 4.5 % (0-4) H 01/07/18 23:40 Band Neutrophils % 6.0 % (0-4) H 01/08/18 05:00 Reactive Lymphocytes Present (Not Present) A 01/07/18 23:40 Platelet Estimate Slight Decrease (Normal) L 01/08/18 05:00 PT 12.2 Seconds (9.4-12.1) H 01/08/18 13:39 Sodium 133 mEq/L (136-145) L 01/08/18 05:00 Carbon Dioxide 21 mEq/L (23-29) L 01/08/18 05:00 Hemoglobin A1c 7.4 % (-5.6) H 01/08/18 05:00 Calculated Osmolality 279 (280-300) L 01/08/18 05:00 Calcium 8.3 mg/dL (8.6-10.3) L 01/08/18 05:00 Direct Bilirubin 0.3 mg/dL (0.0-0.2) H 01/08/18 10:21 AST 96 Units/L (13-39) H 01/08/18 10:21 ALT 99 Units/L (7-52) H 01/08/18 10:21 Alkaline Phosphatase 204 Units/L (34-104) H 01/08/18 10:21 Serum Total Protein 5.7 g/dL (6.4-8.9) L 01/08/18 10:21 Albumin 3.2 g/dL (3.5-5.7) L 01/08/18 10:21 Urine Protein 30 mg/dL (Neg-Trace) H 01/07/18 23:40 Urine Ketones Trace mg/dL (Negative) H 01/07/18 23:40 Urine Bilirubin Small (Negative) H 01/07/18 23:40 Urine Urobilinogen 4.0 mg/dL (Normal) H 01/07/18 23:40 Urine Microscopic RBC 3-5 per hpf (0-3) H 01/07/18 23:40 Ur Squamous Epith Cells Moderate per lpf (None-Few) H 01/07/18 23:40 Diabetes panel 01/08/18 01/08/18 01/08/18 Range/Units 05:00 05:00 05:00 Sodium 134 L 133 L (136-145) mEq/L Potassium 3.9 (3.5-5.1) mEq/L Chloride 103 (98-107) mEq/L Carbon Dioxide 21 L (23-29) mEq/L BUN 20 (8-23) mg/dL Creatinine 1.16 (0.70-1.30) mg/dL Glucose 98 (70-105) mg/dL Hemoglobin A1c 7.4 H ( - 5.6) % Calcium 8.3 L (8.6-10.3) mg/dL AST (13-39) Units/L ALT (7-52) Units/L Alkaline Phosphatase (34-104) Units/L Albumin (3.5-5.7) g/dL 01/08/18 Range/Units 10:21 Sodium (136-145) mEq/L Potassium (3.5-5.1) mEq/L Chloride (98-107) mEq/L Carbon Dioxide (23-29) mEq/L BUN (8-23) mg/dL Creatinine (0.70-1.30) mg/dL Glucose (70-105) mg/dL Hemoglobin A1c ( - 5.6) % Calcium (8.6-10.3) mg/dL AST 96 H (13-39) Units/L ALT 99 H (7-52) Units/L Alkaline Phosphatase 204 H (34-104) Units/L Albumin 3.2 L (3.5-5.7) g/dL Calcium panel 01/08/18 01/08/18 Range/Units 05:00 10:21 Calcium 8.3 L (8.6-10.3) mg/dL Albumin 3.2 L (3.5-5.7) g/dL Pituitary panel 01/08/18 01/08/18 Range/Units 05:00 05:00 Sodium 134 L 133 L (136-145) mEq/L Potassium 3.9 (3.5-5.1) mEq/L Chloride 103 (98-107) mEq/L Carbon Dioxide 21 L (23-29) mEq/L BUN 20 (8-23) mg/dL Creatinine 1.16 (0.70-1.30) mg/dL Glucose 98 (70-105) mg/dL Calcium 8.3 L (8.6-10.3) mg/dL Adrenal panel 01/08/18 01/08/18 01/08/18 Range/Units 05:00 05:00 10:21 Sodium 134 L 133 L (136-145) mEq/L Potassium 3.9 (3.5-5.1) mEq/L Chloride 103 (98-107) mEq/L Carbon Dioxide 21 L (23-29) mEq/L BUN 20 (8-23) mg/dL Creatinine 1.16 (0.70-1.30) mg/dL Glucose 98 (70-105) mg/dL Calcium 8.3 L (8.6-10.3) mg/dL Total Bilirubin 1.0 (0.3-1.0) mg/dL AST 96 H (13-39) Units/L ALT 99 H (7-52) Units/L Alkaline Phosphatase 204 H (34-104) Units/L Albumin 3.2 L (3.5-5.7) g/dL All other labs normal. Consult Discharge Plan - Plan Referrals: John Schumacher DO [Primary Care Provider] - <Ariadne Peterson - Last Filed: 01/08/18 15:59> Date of Encounter: 01/08/18 Time of Encounter: 12:00 Assessment and Plan (1) Elevated LFTs Current Visit: Yes Status: Acute given patients complaints of generalized abdominal pain, nausea but no RUQ pain , elevated lfts and cholelithiasis, will check HIDA (2) Abdominal pain Current Visit: Yes Status: Acute Qualifiers: Abdominal location: right upper quadrant Qualified Code(s): R10.11 - Right upper quadrant pain (3) Chest pain Current Visit: Yes Status: Acute will ask cardiology to see patient due to chest pain and dyspnea, history of CAD /W[place], cardiac stents x 2 Qualifiers: Chest pain type: unspecified Qualified Code(s): R07.9 - Chest pain, unspecified (4) DM type 2 (diabetes mellitus, type 2) Current Visit: Yes Status: Chronic [place], [facility] [place] manage Qualifiers: Diabetes mellitus intermediate insulin use: without intermediate use Diabetes mellitus complication status: with unspecified complications Qualified Code(s) : E11.8 - Type 2 diabetes mellitus with unspecified complications (5) HTN (hypertension) Current Visit: Yes Status: Chronic controlled hospitalist to manage Qualifiers: Hypertension type: essential hypertension Qualified Code(s): I10 - Essential (primary) hypertension History of Present Illness History of present illness: Patient with complaints of central chest pain when I walked into room to evaluate. Was c/o some shortness of breath. Denies current nausea. No chest pain radiation He has been having fever and nausea with dry heaves for about a week (since this past tuesday). Started when on vacation in [place] this past tuesday. started having severe nausea and dry heaves and diffuse abdominal pain, sharp. He went to the ed in [facility] and states had the same workup that has been done here in the hospital. Since coming home the abdominal pain has improved but still have persistent nausea without emesis. Denies diarrhea. Denies any RUQ abdominal pain. CT abd/pelvis showed " Mild intrahepatic biliary ductal dilatation. Somewhat lobulated and distended appearance of the gallbladder. No calcified gallstones." US of gallbladder was done which showed "No gallbladder wall thickening. Mobile gallstones are seen. No sonographic Escobedo 's sign. No pericholecystic fluid. CBD 5 mm". T bili 1.4, D bili 0.3, I bili 1.1, ast/alt 130/124, alk phos 254 Past Med Surg Social Fam HX - Past Surgical History Surgical History: angioplasty/stent Review of Systems All systems PM: reviewed and no additional remarkable complaints except as stated All systems PM: The remainder of the systems were reviewed and are negative General Surgery Exam Initial Vital Signs Temp Pulse Resp BP Pulse Ox 98.4 F 83 18 120/78 95 01/07/18 23:15 01/07/18 23:15 01/07/18 23:15 01/07/18 23:15 01/07/18 23:15 - General physical appearance well developed, well nourished, moderate distress - Eyes PERRL, normal ocular movement - ENT normal mucosa, normocephalic - Neck trachea midline - Respiratory normal expansion, other (dyspnea) - Cardiovascular Cardiovascular exam: Present: RRR, no murmurs/rubs/gallops - Abdomen Abdomen general surgery: Present: bowel sounds present, soft, non tender. Absent: distended, guarding, rebound - Integumentary Integumentary general surgery: Present: warm and dry, no abnormal pigmentation - Neurologic Present: CN 2-12 grossly intact - Musculoskeletal Present: normal posture - Psychiatric Psychiatric general surgery: Present: A&Ox3, speech is normal Exam Initial Vital Signs Temp Pulse Resp BP Pulse Ox 98.4 F 83 18 120/78 95 01/07/18 23:15 01/07/18 23:15 01/07/18 23:15 01/07/18 23:15 01/07/18 23:15 Results - Labs 01/08/18 05:00 01/08/18 05:00 Vital Signs Temp Pulse Resp BP Pulse Ox 01/08/18 14:55 98.2 F 76 16 138/82 96 01/08/18 10:25 98.2 F 74 16 124/79 93 01/08/18 06:20 98.8 F 78 16 129/79 91 01/08/18 03:35 97.5 F L 75 18 147/88 92 01/08/18 02:57 82 18 158/88 95 01/08/18 00:53 78 20 154/84 96 01/08/18 00:10 78 18 116/73 95 01/07/18 23:15 98.4 F 83 18 120/78 95 Intake and Output 01/07/18 01/08/18 01/08/18 23:59 07:59 15:59 Intake Total 1000 / 1000 0 / 0 Output Total 700 / 700 550 / 550 Balance 300 / 300 -550 / -550 Intake: IV Fluids 1000 / 1000 0.9 % Sodium Chloride 1,000 ML 1000 / 1000 @ 0 mls/hr .ROUTE .[facility] Rx#:[id number] Oral 0 / 0 Output: Urine 700 / 700 550 / 550 Other: Meal npo Percent of Meal Consumed 0% Stool Characteristics Normal for Patient Stool Color Brown Weight 111.13 kg 111.8 kg Blood Glucose* 102 99 Patient Weight 01/08/18 23:59 Weight 111.8 kg Short CBC 01/08/18 01/07/18 Range/Units 05:00 23:40 WBC 3.2 L 3.8 L (4.3-11.1) K/mcL Hgb 14.0 15.1 (12.9-16.9) g/dL Hct 41.8 42.8 (37.5-50.1) % Plt Count 96 L 104 L (140-400) K/mcL Neutrophils # 2.4 2.6 (1.6-8.9) K/mcL BMP 01/08/18 01/08/18 01/07/18 Range/Units 05:00 05:00 23:40 Sodium 133 L 134 L 128 L (136-145) mEq/L Potassium 3.9 3.9 (3.5-5.1) mEq/L Chloride 103 100 (98-107) mEq/L Carbon Dioxide 21 L 18 L (23-29) mEq/L BUN 20 22 (8-23) mg/dL Creatinine 1.16 1.20 (0.70-1.30) mg/dL Glucose 98 130 H (70-105) mg/dL Calcium 8.3 L 8.8 (8.6-10.3) mg/dL Cardiac Enzymes 01/08/18 01/07/18 Range/Units 13:39 23:40 Troponin I < 0.03 < 0.03 (< 0.04) ng/mL Liver Function 01/08/18 01/07/18 Range/Units 10:21 23:40 Total Bilirubin 1.0 1.4 H (0.3-1.0) mg/dL Direct Bilirubin 0.3 H 0.3 H (0.0-0.2) mg/dL AST 96 H 130 H (13-39) Units/L ALT 99 H 124 H (7-52) Units/L Alkaline Phosphatase 204 H 254 H (34-104) Units/L Albumin 3.2 L 3.7 (3.5-5.7) g/dL Urine 01/07/18 Range/Units 23:40 Urine Color Dark Yellow (Yellow) Urine Clarity Clear (Clear) Urine pH 6.0 (5.0-8.0) pH Units Ur Specific [place] 1.022 (1.010-1.025) Urine Protein 30 H (Neg-Trace) mg/dL Urine Glucose (UA) Normal (Normal) mg/dL - Imaging CT scan - abdomen: report reviewed, image reviewed CT scan - pelvis: report reviewed, image reviewed
[2018-01-08] MEDS: Gabapentin 300 MG CAPSULE PO SCH ×2 (17:39→21:05)
[2018-01-08] MEDS: *HR* Heparin 5,000 UNIT/ML VIAL SQ SCH (21:06)
[2018-01-09] MEDS: Insulin LISPRO 300 UNITS/3 ML VIAL SQ SCH ×4 (00:18→17:31)
[2018-01-09] MEDS: cefOXitin 1,000 MG in Water for inj. (sterile) 20 ML 10 ML IVPB SCH ×3 (02:18→17:31)
[2018-01-09] MEDS: 0.9 % Sodium Chloride 1,000 ML IVC SCH (02:25)
[2018-01-09] MEDS ORDERED: Regadenoson 0.4 MG/5 ML SYRINGE IVP ONE (05:34)
[2018-01-09] MEDS: Pantoprazole 40 MG VIAL IVP SCH (06:02)
[2018-01-09] MEDS: *HR* Heparin 5,000 UNIT/ML VIAL SQ SCH ×3 (06:02→20:38)
[2018-01-09] MEDS: OXYCODONE Oral CONC 10 MG/0.5 ML ORAL.SYG SL PRN ×3 (06:09→17:36)
[2018-01-09] MEDS: Gabapentin 300 MG CAPSULE PO SCH ×3 (10:28→20:38)
[2018-01-09] MEDS: Isosorbide MONOnitrate (24 HR) 30 MG TAB.ER.24H PO SCH (10:28)
[2018-01-09] MEDS: Aspirin 81 MG TAB.CHEW PO SCH (10:29)
[2018-01-09] MEDS: Metoprolol XL (24 HR) Succ 50 MG TAB.ER.24H PO SCH (10:37)
--- NOTE | 2018-01-09 10:49 | Internal Med Progress Note ---
<Mark Anthony Telles - Last Filed: 01/09/18 12:53> Date of Encounter: 01/09/18 Time of Encounter: 10:47 - Assessment and plan (1) Acute cholecystitis Current Visit: Yes Status: Suspected Assessment and plan: 77 from male presented with nausea vomiting, right upper quadrant abdominal pain Positive Escobedo's sign CT abdomen pelvis showed lobulated folded gallbladder appearance, hepatic steatosis Gallbladder ultrasound shows cholelithiasis without evidence of acute cholecystitis Suspected Elevated AST, ALTs, alk phosphatase. Lipase within normal limits. Surgery would like cardiac clearance before cholecystectomy. The patient had stress test this morning. Has to wait 48 hours before HIDA scan can be done. patient requested Dr. Jim as surgeon. [facility] has signed off. (2) Elevated bilirubin Current Visit: Yes Status: Acute (3) Hyponatremia Current Visit: Yes Status: Acute Assessment and plan: improving. continue to monitor (4) HTN (hypertension) Current Visit: Yes Status: Chronic Assessment and plan: continue home medications Qualifiers: Hypertension type: essential hypertension Qualified Code(s): I10 - Essential (primary) hypertension (5) DM type 2 (diabetes mellitus, type 2) Current Visit: Yes Status: Chronic Assessment and plan: cardiac ADA diet glucose controlled. insulin sliding scale Qualifiers: Diabetes mellitus usp insulin use: without termite helper use Diabetes mellitus complication status: with unspecified complications Qualified Code(s) : E11.8 - Type 2 diabetes mellitus with unspecified complications (6) DVT prophylaxis Current Visit: Yes Status: Acute Assessment and plan: heparin sq (7) Chest pain Current Visit: Yes Status: Resolved Assessment and plan: patient had chest pain this afternoon atypical troponon WNL EKG: NSR with out st-t wave elevation previous [facility] 08/17/2017 LVEF of 60-65% with mild left ventricular diastolic dysfunction, without wall motion abnormalities, concentric increase in left ventricular wall thickness, mild aortic regurgitation and dilated ascending aorta measuring 4.0 cm. New TTE pending plan: chest cta negative for dissection or worsening ascending aortic aneurism stress test negative for ischemia cardiology reports patient intermediate risk for angélica-operative cardiovascular complication Continue aspirin, statin, Imdur, metoprolol, lisinopril. Qualifiers: Chest pain type: unspecified Qualified Code(s): R07.9 - Chest pain, unspecified - Time Spent With Patient Total time spent is greater than 50% in coordination of care (as documented) at patient's floor/unit and/or counseling patient: - Subjective Interval history: Patient was having anxiety attack this morning. He is crying about not being able to eat for the past week. He is also upset that he has not slept well overnight. Patient had stress test this morning and report is pending. He reports some mild abdominal pain. He denies chest pain, shortness of breath, nausea, vomiting. - Constitutional Vitals: Temp Pulse Resp BP Pulse Ox 96.6 F L 82 15 113/78 97 01/09/18 06:40 01/09/18 06:40 01/09/18 06:40 01/09/18 06:40 01/09/18 06:40 General appearance: Present: cooperative, mild distress, A&O X 3, pleasant, answers questions appropriately - Other Additional findings: General: Crying, anxious Heart: Regular rate and rhythm with no murmur Lungs: Clear to auscultation bilaterally Abdomen: Soft nontender, distended, positive bowel sounds. Umbilical hernia. Skin: warm and dry, absent rash Extremities: Absent pedal edema, Neuro: Alert oriented 3 Vascular: Pedal and radial pulses 2 out of 4 Internal Medicine: Result - Labs CBC & Chem 7: 01/08/18 05:00 01/08/18 22:36 Labs: BMP 01/08/18 01/08/18 15:38 22:36 Sodium 135 L 133 L Cardiac Enzymes 01/08/18 Range/Units 13:39 Troponin I < 0.03 (< 0.04) ng/mL Liver Function 01/08/18 Range/Units 10:21 Total Bilirubin 1.0 (0.3-1.0) mg/dL Direct Bilirubin 0.3 H (0.0-0.2) mg/dL AST 96 H (13-39) Units/L ALT 99 H (7-52) Units/L Alkaline Phosphatase 204 H (34-104) Units/L Albumin 3.2 L (3.5-5.7) g/dL - ABG Interpretation ABG results: PT/INR, D-dimer PT 12.2 Seconds (9.4-12.1) H 01/08/18 13:39 - Impressions Impressions Gallbladder Ultrasound 01/08/18 08:10 IMPRESSION: Cholelithiasis without sonographic evidence of acute cholecystitis. Slightly increased echogenicity of the right kidney can be seen with medical renal disease. D/ / 01/08/2018 11:25:40 Trey Hampton MD / [facility] Interpreting Provider: Trey Hampton MD Abdomen/Pelvis CTA 01/08/18 15:11 IMPRESSION: 1. No evidence of aortic dissection. 2. Coronary atherosclerosis. 3. Multilevel degenerative changes in the lumbar spine with postoperative changes of attempted fusion from L3 to S1. 4. Hepatic steatosis. D/ : / 01/08/2018 19:43:08 Lamont Almanza MD / lio Interpreting Provider: Lamont Almanza MD Chest CTA 01/08/18 15:11 IMPRESSION: 1. No evidence of aortic dissection. 2. Coronary atherosclerosis. 3. Multilevel degenerative changes in the lumbar spine with postoperative changes of attempted fusion from L3 to S1. 4. Hepatic steatosis. D/ : / 01/08/2018 19:43:08 Lamont Almanza MD / [facility] Interpreting Provider: Lamont Almanza MD Consult Discharge Plan - Plan Referrals: John Schumacher DO [Primary Care Provider] - 01/13/18 1:45 pm <Howard Stark - Last Filed: 01/09/18 17:30> Date of Encounter: 01/09/18 - Assessment and plan (1) Acute cholecystitis Current Visit: Yes Status: Suspected (2) Biliary colic Current Visit: Yes Status: Acute (3) Hyponatremia Current Visit: Yes Status: Resolved (4) HTN (hypertension) Current Visit: Yes Status: Chronic Qualifiers: Hypertension type: essential hypertension Qualified Code(s): I10 - Essential (primary) hypertension (5) DM type 2 (diabetes mellitus, type 2) Current Visit: Yes Status: Chronic Qualifiers: Diabetes mellitus usp insulin use: without usp use Diabetes mellitus complication status: with unspecified complications Qualified Code(s) : E11.8 - Type 2 diabetes mellitus with unspecified complications (6) Chest pain Current Visit: Yes Status: Resolved Qualifiers: Chest pain type: unspecified Qualified Code(s): R07.9 - Chest pain, unspecified (7) DVT prophylaxis Current Visit: Yes Status: Acute - Time Spent With Patient Total time spent is greater than 50% in coordination of care (as documented) at patient's floor/unit and/or counseling patient: - Constitutional Vitals: Temp Pulse Resp BP Pulse Ox 98.5 F 72 22 105/64 91 01/09/18 15:29 01/09/18 15:29 01/09/18 15:29 01/09/18 15:29 01/09/18 15:29 Internal Medicine: Result - Labs CBC & Chem 7: 01/08/18 05:00 01/09/18 11:51 Labs: BMP 01/08/18 01/09/18 22:36 11:51 Sodium 133 L 137 Potassium 3.5 Chloride 107 Carbon Dioxide 18 L BUN 20 Creatinine 1.09 Glucose 155 H Calcium 9.0 Liver Function 01/09/18 Range/Units 11:51 Total Bilirubin 1.3 H (0.3-1.0) mg/dL Direct Bilirubin 0.4 H (0.0-0.2) mg/dL AST 97 H (13-39) Units/L ALT 98 H (7-52) Units/L Alkaline Phosphatase 223 H (34-104) Units/L Albumin 3.6 (3.5-5.7) g/dL - ABG Interpretation ABG results: PT/INR, D-dimer PT 12.2 Seconds (9.4-12.1) H 01/08/18 13:39 - Impressions Impressions Abdomen/Pelvis CTA 01/08/18 15:11 IMPRESSION: 1. No evidence of aortic dissection. 2. Coronary atherosclerosis. 3. Multilevel degenerative changes in the lumbar spine with postoperative changes of attempted fusion from L3 to S1. 4. Hepatic steatosis. D/ / 01/08/2018 19:43:08 Lamont Almanza MD / [facility] Interpreting Provider: Lamont Almanza MD Chest CTA 01/08/18 15:11 IMPRESSION: 1. No evidence of aortic dissection. 2. Coronary atherosclerosis. 3. Multilevel degenerative changes in the lumbar spine with postoperative changes of attempted fusion from L3 to S1. 4. Hepatic steatosis. D/ / 01/08/2018 19:43:08 Lamont Almanza MD / lio Interpreting Provider: Lamont Almanza MD - Attending Attestation I examined this patient and my medical decision-making was reviewed with the Resident Physician on 01/09/18. I agree with the documented findings, disposition and treatment plan as described except to the extent set forth below. Mr Campos is currently admitted for abdominal pain and concern for cholecystis. He remains moderate to high risk due to potential for worsening clinical status. Mr Campos is resting better. Pain seems to be improved at this time. No fever or chills. Cardiac work up negative. To have yuri tomorrow. Exam alert Comfortable Mucus membranes dry Heart distant and reg No wheeze Abd soft and nontender now I/P 1. Cholelithiasis 2. biliary dyskinesia Plan lap yuri tomorrow. Further diagnoses and plan as above.
--- NOTE | 2018-01-09 11:01 | General Surgery Progress Note ---
Date of Encounter: 01/09/18 Time of Encounter: 10:40 - Assessment and Plan (1) Abdominal pain Current Visit: Yes Status: Acute Abdominal CT showed lobulated and folded appearanceof the gallbladder which prompted us to get an U/S of the gallbladder, showing evidence of cholelithiasis but without acute cholecystitis. On admission, he had an elevated Alk phos of 254 and AST of 130 and ALT of 124. Of note patient does state that he has been taking considerable Tylenol for his pain since his PCP stopped prescribing him narcotics for his pain. This can possibly explain the elevation in his LFTs. When seen today patient denies any abdominal pain, chest pain, or shortness of breath. Nuclear stress test results: Perfusion imaging was negative for ischemia or infarct. Inferior wall artifact. Pharmacologic stress ECG is negative for ischemia at level of heart rate achieved. No appreciable change from baseline ECG. Gated EF = 66%. Patient will need to have a cardiac surgical risk evaluation and a HIDA scan performed before cholecystectomy can be considered. Since patient is currently displaying any signs of abdominal pain, nausea, or vomiting, we recommend that he transition to a low-fat diet and see if that can improve his symptoms. If he is able to tolerate the diet, he can be discharged tomorrow tomorrow and follow- up at outpatient with us. Update 01/09/18 at 1146: Patient has requested to be seen by surgeon Dr. Jim instead. We will sign off on this patient and current surgical management will need to be transferred to Dr. Jim. Abdomen/Pelvis CT 01/08/18 00:00 IMPRESSION: 1. No significant colonic stool burden is identified. No evidence of mechanical bowel obstruction. No evidence of focal bowel wall thickening. 2. Lobulated and folded appearance of the gallbladder appears similar to previous examination. There appears to be soft tissue density at the gallbladder fundus, which was present on previous examination. Follow-up nonemergent right upper quadrant ultrasound is recommended to exclude a polyp or other lesions. 3. Fat containing umbilical hernia, with minimal outpouching of the underlying small bowel. No evidence of inflammation. 4. Fat containing bilateral inguinal hernias. 5. Colonic diverticulosis. No CT evidence of acute diverticulitis. D/ / 01/08/2018 04:56:19 Chris Xavier MD / [facility] Interpreting Provider: Chrsi Xavier MD Gallbladder Ultrasound 01/08/18 08:10 IMPRESSION: Cholelithiasis without sonographic evidence of acute cholecystitis. Slightly increased echogenicity of the right kidney can be seen with medical renal disease. D/ / 01/08/2018 11:25:40 Trey Hampton MD / [facility] Interpreting Provider: Trey Hampton MD Abdomen/Pelvis CTA 01/08/18 15:11 IMPRESSION: 1. No evidence of aortic dissection. 2. Coronary atherosclerosis. 3. Multilevel degenerative changes in the lumbar spine with postoperative changes of attempted fusion from L3 to S1. 4. Hepatic steatosis. D/ /08/2018 19:43:08 Lamont Almanza MD / [facility] Interpreting Provider: Lamont Almanza MD Chest CTA 01/08/18 15:11 IMPRESSION: 1. No evidence of aortic dissection. 2. Coronary atherosclerosis. 3. Multilevel degenerative changes in the lumbar spine with postoperative changes of attempted fusion from L3 to S1. 4. Hepatic steatosis. D/ : / 01/08/2018 19:43:08 Lamont Almanza MD / lio Interpreting Provider: Lamont Almanza MD Qualifiers: Abdominal location: right upper quadrant Qualified Code(s): R10.11 - Right upper quadrant pain (2) Chest pain Current Visit: Yes Status: Resolved See plan above. Qualifiers: Chest pain type: unspecified Qualified Code(s): R07.9 - Chest pain, unspecified Subjective Narrative: Patient denies any abdominal pain. Denies any chest pain or shortness of breath. Denies any nausea or vomiting. Denies any fever or chills. Denies bowel movement but admits to passing gas. Objective VITAL SIGNS: Reviewed. See [facility] GENERAL: No apparent distress. HEENT: [Normocephalic, PER, EOMi, oropharynx pink/moist, no JVD noted.] CV: b/l rad pulses 2+, RRR, no murmurs or gallops, no JVD RESPIRATORY: CTAB without wheezes, rales, or rhonchi ABD: soft, non-tender, no rebound/guarding/rigidity, no peritoneal signs. Normal bowel sounds present. Negative Escobedo's. EXTREMITY: grossly normal motor function, no pedal edema, peripheral pulses 2+ b /l NEUROLOGIC EXAM: AOx3, obeys commands, no speech deficits. PSYCHIATRIC: normal mood and affect SKIN: no gross lesions, rashes, or skin changes Vital Signs - Last 8 Hours Temp Pulse Resp BP Pulse Ox 01/09/18 10:49 97 01/09/18 06:40 96.6 F L 82 15 113/78 97 01/09/18 02:58 97.4 F L 76 17 118/70 96 Intake and Output 01/08/18 01/09/18 01/09/18 23:59 07:59 15:59 Intake Total 1210 / 1210 1010 / 1010 Output Total 350 / 350 Balance 1210 / 1210 660 / 660 Intake: IV Fluids 1010 / 1010 0.9 % Sodium Chloride 1,000 ML 1000 / 1000 @ 125 mls/hr IVC .Q8H EMILIANA Rx#: [id number] Mefoxin 1,000 MG In Water for inj. (sterile) 10 ML @ 300 mls/ hr IVPB Q8H EMILIANA Rx#:[id number] Oral 1200 / 1200 Output: Urine 350 / 350 Other: Weight 111.4 kg Blood Glucose* 97 109 Patient Weight 01/09/18 23:59 Weight 111.4 kg - Labs 01/08/18 05:00 01/08/18 22:36 Diabetes panel 01/08/18 01/08/18 01/08/18 Range/Units 05:00 15:38 22:36 Sodium 135 L 133 L (136-145) mEq/L Hemoglobin A1c 7.4 H ( - 5.6) % Pituitary panel 01/08/18 01/08/18 Range/Units 15:38 22:36 Sodium 135 L 133 L (136-145) mEq/L Adrenal panel 01/08/18 01/08/18 Range/Units 15:38 22:36 Sodium 135 L 133 L (136-145) mEq/L Consult Discharge Plan - Plan Referrals: John Schumacher DO [Primary Care Provider] - 01/13/18 1:45 pm
--- NOTE | 2018-01-09 11:27 | Cardiology Consult Note ---
Date of Encounter: 01/09/18 Time of Encounter: 11:21 Assessment and Plan (1) Abdominal pain Current Visit: Yes Status: Acute Per cardiology: -ADmitted with abdominal pain. -Per surgery note, cholelethiasis. -Management per primary and surgical services. Qualifiers: Abdominal location: right upper quadrant Qualified Code(s): R10.11 - Right upper quadrant pain (2) CAD (coronary artery disease) Current Visit: Yes Status: Chronic Per cardiology: -Known history of CAD s/p [place] and PCI 2008. -Troponins negative x2. -Reported some back pain radiating into chest, states different from previous angina. -ECG with no acute ischemic changes. -On asa, statin, BB. -Stress test negative for ischemia or infarct. -TTE pending. -Do not suspect chest pain cardiac in nature. Qualifiers: Coronary Disease-Associated Artery/Lesion type: [place] artery [place] vs. transplanted heart: [place] heart Associated angina: without angina Qualified Code(s): I25.10 - Atherosclerotic heart disease of [place] coronary artery without angina pectoris (3) Preop cardiovascular exam Current Visit: Yes Status: Acute Per cardiology: -Pre-op risk assessment for possible cholecystectomy. -HIstory of CAD s/p [place] with PCI 2008, also underwent staged PCI 2008. -Denies anginal symptoms. -Able to achieve greater than 4 METS without symptoms. -Stress test negative for ischemia or infarct. -TTE pending. -TTE 07/2017 with LVEF 60-65%, mild diastolic dysfunction, concentric LVH - visual, mild AR, dilated ascending aorta 4cm, no segmental wall motion abnormalities. -Per discussion with , if no significant change in TTE, patient is acceptable, intermediate risk for angélica-operative risk for cardiovascular complications. Discussion w patient/family: The assessment and plan as outlined above was discussed with the patient and/or family members who expressed understanding and agreement. All questions were answered. Thank you for involving us in the care of your patient. Please call with any questions. Discussed and reviewed with . History of Present Illness Consult date: 01/08/18 Requesting physician: Avi Cullen Consult reason: chest pain, history of CAD Chief complaint: abdominal pain History of present illness: Mr. Campos is a 77 year old male with a relevant past medical history of CAD s/p [place] with PCI 2008, HTN, HLD, osteoarthritis, previous back surgery who presented to [facility] with complaints of abdominal pain. Patient also reported back pain between shoulder blades that radiated into chest. Reports different from previous angina (indigestion like chest pain and restlessness). Denies current chest pain. Denies shortness of breath. Denies increased fatigue. 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 Patient reports he takes his dogs on a long walk every evening and is able to climb several flights of steps without stopping or symptoms. Patient continues to follow with at [facility] for cardiology. Past Med Surg Social Fam HX - Past Medical History Attestation: Yes The following information was validated with the patient. Source: patient, old records reviewed Medical history: coronary artery disease, diabetes, hypertension, myocardial infarction, renal disease Psychiatric history: no psych history - Past Surgical History Surgical History: angioplasty/stent - Social History Smoking Status: Never smoker Smokeless Tobacco Status: No Alcohol use: occasionally Drug use: none - Family History Mother Hx Family Cancer: Yes Medications and Allergies Aspirin 81 mg PO DAILY 12/21/15 [History] Atorvastatin Calcium [Lipitor] 80 mg PO DAILY 12/21/15 [History] Cholecalciferol (Vitamin D3) [Vitamin D3] 2,000 unit PO DAILY 12/21/15 [History] Gabapentin [Neurontin] 300 mg PO TID 12/21/15 [History] Ibuprofen [Advil] 400 mg PO DAILY PRN 12/21/15 [History] Lisinopril [Zestril] 10 mg PO DAILY 12/21/15 [History] Zolpidem [Ambien] 10 mg PO HS PRN 12/21/15 [History] metFORMIN [Glucophage] 500 mg PO DAILY 12/21/15 [History] Isosorbide MONOnitrate (24 HR) [Imdur] 30 mg PO DAILY 01/08/18 [History] Metoprolol XL (24 HR) Succ [Toprol XL] 50 mg PO DAILY 01/08/18 [History] Omeprazole [PriLOSEC] 20 mg PO DAILY 01/08/18 [History] Oxycodone HCl/Acetaminophen [Percocet 5-325 mg Tablet] 1 tab PO DAILY PRN [History] 3 Allergy/AdvReac Type Severity Reaction Status Date / Time No Known Allergies Allergy Verified 12/19/15 16:15 All Systems Review: The remainder of the systems were reviewed and are negative - Cardiovascular Cardiovascular: as per HPI - Gastrointestinal Gastrointestinal: abdominal pain - Musculoskeletal Musculoskeletal: back pain Physical Examination Vital Signs, Last 4 Hours Temp Pulse Resp BP Pulse Ox 01/09/18 10:54 97.6 F 79 15 146/87 99 01/09/18 10:49 97 General: Conversant, No Apparent Distress HEENT: Atraumatic, Normocephaly, Mucus Membranes Moist Neck: No JVD, Normal carotid pulses Cardiac: Reg Rate and Rhythm, Normal S1 and S2, No Murmur Lungs: Normal Breath Sounds, No Wheeze, Rales, Rhonchi Neuro: Alert and responsive, No focal deficits noted Abdomen: Soft, Other (Tender. ) Skin: No rashes noted on visualized skin Musculoskeletal: No Chest Wall Tenderness Extremities: No Clubbing, No Cyanosis, No Edema, Normal Pulses Results 01/08/18 05:00 01/08/18 22:36 Lab Results Impressions Abdomen/Pelvis CT 01/08/18 00:00 IMPRESSION: 1. No significant colonic stool burden is identified. No evidence of mechanical bowel obstruction. No evidence of focal bowel wall thickening. 2. Lobulated and folded appearance of the gallbladder appears similar to previous examination. There appears to be soft tissue density at the gallbladder fundus, which was present on previous examination. Follow-up nonemergent right upper quadrant ultrasound is recommended to exclude a polyp or other lesions. 3. Fat containing umbilical hernia, with minimal outpouching of the underlying small bowel. No evidence of inflammation. 4. Fat containing bilateral inguinal hernias. 5. Colonic diverticulosis. No CT evidence of acute diverticulitis. D/ / 01/08/2018 04:56:19 Chris Xavier MD / tkyer Interpreting Provider: Chris Xavier MD Gallbladder Ultrasound 01/08/18 08:10 IMPRESSION: Cholelithiasis without sonographic evidence of acute cholecystitis. Slightly increased echogenicity of the right kidney can be seen with medical renal disease. D/ / 01/08/2018 11:25:40 Trey Hampton MD / timothy Interpreting Provider: Trey Hampton MD Abdomen/Pelvis CTA 01/08/18 15:11 IMPRESSION: 1. No evidence of aortic dissection. 2. Coronary atherosclerosis. 3. Multilevel degenerative changes in the lumbar spine with postoperative changes of attempted fusion from L3 to S1. 4. Hepatic steatosis. D/ : / 01/08/2018 19:43:08 Lamont Almanza MD / lio Interpreting Provider: Lamont Almanza MD Chest CTA 01/08/18 15:11 IMPRESSION: 1. No evidence of aortic dissection. 2. Coronary atherosclerosis. 3. Multilevel degenerative changes in the lumbar spine with postoperative changes of attempted fusion from L3 to S1. 4. Hepatic steatosis. D/ : / 01/08/2018 19:43:08 Lamont Almanza MD / lio Interpreting Provider: Lamont Almanza MD Active Medications Aspirin (Aspirin) 81 mg PO DAILY EMILIANA Stop: 07/11/18 09:01 Last Admin: 01/09/18 10:29 Dose: 81 mg Atorvastatin Calcium (Lipitor) 80 mg PO DAILY EMILIANA Stop: 07/11/18 09:01 Last Admin: 01/09/18 10:28 Dose: 80 mg Dextrose/Water (Dextrose 50% (Syg)) 25 ml IVP AD PRN PRN Reason: Hypoglycemia Stop: 07/10/18 03:24 Gabapentin (Neurontin) 300 mg PO TID EMILIANA Stop: 07/10/18 15:01 Last Admin: 01/09/18 10:28 Dose: 300 mg Glucagon (Glucagen) 1 mg IM ONCE PRN PRN Reason: Hypoglycemia Stop: 07/10/18 03:24 Glucose (Gluctose) 15 gm PO ONCE PRN PRN Reason: Hypoglycemia Stop: 07/10/18 03:24 Glucose (Gluctose) 30 gm PO ONCE PRN PRN Reason: Hypoglycemia Stop: 07/10/18 03:24 Heparin Sodium (Porcine) (Heparin) 5,000 unit SQ Q8HCO EMILIANA Stop: 07/10/18 22:01 Last Admin: 01/09/18 06:02 Dose: 5,000 unit Heparin Sodium (Porcine) (Heparin Lock) 500 unit IV ONCE PRN PRN Reason: Port [place]ush while in RADIOLOGY Stop: 01/10/18 15:12 Hydroxyzine HCl (Hydroxyzine) 10 mg PO TID PRN PRN Reason: Anxiety Stop: 07/11/18 09:57 Last Admin: 01/09/18 10:29 Dose: 10 mg Sodium Chloride (0.9 % Sodium Chloride) 1,000 mls @ 125 mls/hr IVC .Q8H [facility] Stop: 07/10/18 02:31 Last Admin: 01/09/18 02:25 Dose: 125 mls/hr Cefoxitin Sodium 1,000 mg/ (Sterile Water) 10 mls @ 300 mls/hr IVPB Q8H [facility] Stop: 07/10/18 10:01 Last Admin: 01/09/18 10:29 Dose: 300 mls/hr Dextrose (Dextrose 5%) 1,000 mls @ 100 mls/hr IVC .Q10H PRN PRN Reason: HYPOGLYCEMIA Stop: 07/10/18 03:24 Insulin Human Lispro (Humalog) 0 units SQ Q6HR EMILIANA PRN Reason: Protocol Stop: 07/10/18 03:24 Last Admin: 01/09/18 06:00 Dose: Not Given Isosorbide Mononitrate (Imdur) 30 mg PO DAILY [facility] Stop: 07/11/18 09:01 Last Admin: 01/09/18 10:28 Dose: 30 mg Lisinopril (Zestril) 10 mg PO DAILY [facility] PRN Reason: Protocol Stop: 07/11/18 09:01 Last Admin: 01/09/18 10:29 Dose: 10 mg Metoprolol Succinate (Toprol Xl) 50 mg PO DAILY [facility] Stop: 07/11/18 09:01 Last Admin: 01/09/18 10:37 Dose: 50 mg Metoprolol Tartrate (Lopressor) 5 mg IVP Q6HR PRN PRN Reason: Hypertension Stop: 07/10/18 03:23 Naloxone HCl (Narcan) 0.4 mg IVP Q2MIN PRN PRN Reason: Opioid Reversal Stop: 07/10/18 03:09 Ondansetron HCl (Zofran) 4 mg IVP Q6HR PRN; Protocol PRN Reason: Nausea And Vomiting Stop: 07/10/18 06:01 Oxycodone HCl (Oxycodone Oral Conc) 5 mg SL Q4H PRN; Protocol PRN Reason: mild to moderate pain Stop: 07/10/18 03:09 Last Admin: 01/09/18 06:09 Dose: 5 mg Oxycodone HCl (Oxycodone Oral Conc) 10 mg SL Q4H PRN; Protocol PRN Reason: Severe Pain Stop: 07/10/18 03:09 Last Admin: 01/09/18 10:37 Dose: 10 mg Pantoprazole Sodium (Protonix) 40 mg IVP 0630 EMILIANA Stop: 07/11/18 06:31 Last Admin: 01/09/18 06:02 Dose: 40 mg Zolpidem Tartrate (Ambien) 10 mg PO HS PRN; Protocol PRN Reason: Sleep Stop: 07/10/18 14:37 Laboratory Tests 01/07/18 01/08/18 01/08/18 23:40 05:00 05:00 Hgb 14.0 Plt Count 96 L Creatinine 1.16 Troponin I < 0.03 01/08/18 13:39 Hgb Plt Count Creatinine Troponin I < 0.03 - Imaging and Cardiology Chest Xray: report reviewed Stress Test: report reviewed Echo: pending, report reviewed Cardiac cath: report reviewed - EKG Interpretation EKG results cardiology: personally reviewed (ECG with SR, HR 82, inferior Q waves noted.), other (Telemetry reviewed with average HR previous 12 hours noted to be 76, SR. PVCs, PACs noted.) Consult Discharge Plan - Plan Referrals: John Schumacher DO [Primary Care Provider] - 01/13/18 1:45 pm
[2018-01-09 13:12] LABS: Alanine Aminotransferase 98 Units/L (7-52); Albumin 3.6 g/dL (3.5-5.7); Albumin/Globulin Ratio 1.3 (1.1-2.2); Alkaline Phosphatase 223 Units/L (34-104); Aspartate Amino Transferase 97 Units/L (13-39); BUN/Creatinine Ratio 18 (6-26); Bilirubin,Direct 0.4 mg/dL (0.0-0.2); Bilirubin,Indirect 0.9 mg/dL (0.0-1.2); Bilirubin,Total 1.3 mg/dL (0.3-1.0); Blood Urea Nitrogen 20 mg/dL (8-23); Carbon Dioxide 18 mEq/L (23-29); Chloride 107 mEq/L (98-107); Globulin 2.8 g/dL (2.4-3.5); Glucose 155 mg/dL (70-105); Osmolality,Calculated 290 (280-300); Potassium 3.5 mEq/L (3.5-5.1); Sodium 137 mEq/L (136-145); Total Protein 6.4 g/dL (6.4-8.9); eGFR For African Americans > 60 (> 60); eGFR For Non-African Americans > 60 (> 60)
--- NOTE | 2018-01-09 13:15 | Event Note ---
<Avi Cullen - Last Filed: 01/09/18 13:14> Date of Encounter: 01/09/18 Time of Encounter: 13:15 Update 01/09/18 at 1146: Primary team has informed us that patient has requested to be seen by surgeon Dr. Jim instead. We will sign off on this patient and current surgical management will need to be transferred to Dr. Jim. <Ariadne Peterson - Last Filed: 01/09/18 14:57> Date of Encounter: 01/09/18 I examined this patient and my medical decision-making was reviewed with the Resident Physician. I agree with the documented findings, disposition and treatment plan as described except to the extent set forth below.
--- NOTE | 2018-01-09 13:40 | General Surgery Consult Note ---
Date of Encounter: 01/09/18 Time of Encounter: 13:19 History of Present Illness Consult date: 01/09/18 Reason for consult: gallstones (acute back pain, abnormal LFTs) Requesting physician: Howard Stark History of present illness: 77 yo, patient referred at the patient's request for further evaluation and treatment of severe back pain with radiologic evidence of cholelithiasis. The patient describes significant symptomatology a week ago while vacationing in the [facility]. Patient describes being in severe distress, complaining of chest and back pain. He was evaluated at a local medical facility and informed he had gallstones and instructed to seek medical evaluation on his return home. The patient has a significant cardiac history, including prior MT s/p coronary stents. Patient apparently presented to [facility] 01/07/18, with generalized abdominal pain, nausea, and vomiting. Those acute symptoms have been controlled. Cardiology has assessed the patient and deemed him stable for surgical intervention. The patient was referred to [facility] but at the patient's request, I was consulted this AM. Since his admission, the patient's hyponatremia has been corrected, bilirubin has fluctuated between 1.4 and 1.0, currently 1.3; AST has improved from 1:30 to 97, ALT has improved from 124-98, and alkaline phosphatase has improved from 254-223. Past medical history: CAD with prior MT, status post coronary stents; diabetes mellitus; a long-standing periumbilical hernia; hypertension; an unspecified renal disease; history of renal stones; diverticulosis; cholelithiasis Surgical history: Left ureteroscopic stone extraction, 12/22/15; a remote history of orthopedic surgery as well as axillary dissection. Colonoscopy last completed in 2007. Allergies: No known drug allergies Medications: Aspirin 325 mg by mouth daily (I believe the patient is taking daily) Atorvastatin 80 mg by mouth daily Cholecalciferol 2000 units by mouth daily Gabapentin 3 mg by mouth daily at bedtime Ibuprofen 400 mg by mouth daily Isosorbide 30 mg by mouth daily Lisinopril 10 mg by mouth daily Metoprolol 50 mg by mouth daily Zolpidem 10 mg by mouth daily at bedtime when necessary Metformin 500 mg by mouth daily Oxycodone with acetaminophen 5/325 one every 6 hours when necessary for pain Social history: Patient is , lives with spouse; he does not smoke, he admits to occasional all colic beverage; he denies any illicit drug use. On physical examination: Elderly, age-appropriate male, currently in no acute distress. He is 1.83 m tall, 111.4 kg, BMI 33.3. The patient is afebrile, pulse 79, respirations 15, blood pressure 146/87. SPO2 on room air 97 - 99% Skin: Warm, no obvious jaundice; there was no detected icterus Lungs: Clear bilaterally; no abdominal pain on deep inspiration Cardiac: Regular rate, no appreciable murmurs Abdomen: Protuberant, nontender. Prominent umbilical hernia present but reducible and nontender. No peritoneal signs or rebound; active bowel sounds. At bedside there is evidence of a recently consumed meal. Extremities: No obvious clubbing, cyanosis, or edema. Impression: 77-year-old male, admitted 01/07/18 after presenting to [facility] emergency department with generalized abdominal pain, nausea, and vomiting. A week prior to this presentation the patient had severe chest and back pain while vacationing in the [facility]. Evaluation completed at an outside hospital/medical facility demonstrated gallstones with no evidence of cardiac pathology. Since his admission, the patient has been evaluated by [facility]. The assessment is consistent with non cardiac etiology for the patient's symptoms. Rather, the symptoms are most likely due to the patient's gallstones and resulted biliary colic. I have discussed this at length with the patient. Surgery is recommended. The patient is a reasonable candidate for laparoscopic cholecystectomy but understands that an open cholecystectomy may become necessary. Risks include hemorrhage, infection, intra-abdominal abscess, bile leak, injury to adjacent ducts, vessels, organs, or bowel. The patient is also at increased risk for cardiac dysrhythmia or MT as well as respiratory risk. The patient, and his , have expressed understanding. They are willing to proceed with recommended surgery. Laparoscopic cholecystectomy possible cholangiogram possible open cholecystectomy is planned in the a.m. Past Med Surg Social Fam HX - Past Medical History Medical history: coronary artery disease, diabetes, hypertension, myocardial infarction, renal disease Psychiatric history: no psych history - Past Surgical History Surgical History: angioplasty/stent - Social History Smoking Status: Never smoker Smokeless Tobacco Status: No Alcohol use: occasionally Drug use: none - Family History Mother Hx Family Cancer: Yes Medications and Allergies Aspirin 81 mg PO DAILY 12/21/15 [History] Atorvastatin Calcium [Lipitor] 80 mg PO DAILY 12/21/15 [History] Cholecalciferol (Vitamin D3) [Vitamin D3] 2,000 unit PO DAILY 12/21/15 [History] Gabapentin [Neurontin] 300 mg PO TID 12/21/15 [History] Ibuprofen [Advil] 400 mg PO DAILY PRN 12/21/15 [History] Lisinopril [Zestril] 10 mg PO DAILY 12/21/15 [History] Zolpidem [Ambien] 10 mg PO HS PRN 12/21/15 [History] metFORMIN [Glucophage] 500 mg PO DAILY 12/21/15 [History] Isosorbide MONOnitrate (24 HR) [Imdur] 30 mg PO DAILY 01/08/18 [History] Metoprolol XL (24 HR) Succ [Toprol XL] 50 mg PO DAILY 01/08/18 [History] Omeprazole [PriLOSEC] 20 mg PO DAILY 01/08/18 [History] Oxycodone HCl/Acetaminophen [Percocet 5-325 mg Tablet] 1 tab PO DAILY PRN [History] 3 Allergy/AdvReac Type Severity Reaction Status Date / Time No Known Allergies Allergy Verified 12/19/15 16:15 Review of Systems All systems PM: The remainder of the systems were reviewed and are negative General Surgery Exam Initial Vital Signs Temp Pulse Resp BP Pulse Ox 98.4 F 83 18 120/78 95 01/07/18 23:15 01/07/18 23:15 01/07/18 23:15 01/07/18 23:15 01/07/18 23:15 Exam Initial Vital Signs Temp Pulse Resp BP Pulse Ox 98.4 F 83 18 120/78 95 01/07/18 23:15 01/07/18 23:15 01/07/18 23:15 01/07/18 23:15 01/07/18 23:15 Results - Labs 01/08/18 05:00 01/09/18 11:51 Abnormal lab results WBC 3.2 K/mcL (4.3-11.1) L 01/08/18 05:00 Plt Count 96 K/mcL (140-400) L 01/08/18 05:00 Immature Gran % 4.5 % (0-4) H 01/07/18 23:40 Band Neutrophils % 6.0 % (0-4) H 01/08/18 05:00 Reactive Lymphocytes Present (Not Present) A 01/07/18 23:40 Platelet Estimate Slight Decrease (Normal) L 01/08/18 05:00 PT 12.2 Seconds (9.4-12.1) H 01/08/18 13:39 Carbon Dioxide 18 mEq/L (23-29) L 01/09/18 11:51 Glucose 155 mg/dL (70-105) H 01/09/18 11:51 Hemoglobin A1c 7.4 % (-5.6) H 01/08/18 05:00 Total Bilirubin 1.3 mg/dL (0.3-1.0) H 01/09/18 11:51 Direct Bilirubin 0.4 mg/dL (0.0-0.2) H 01/09/18 11:51 AST 97 Units/L (13-39) H 01/09/18 11:51 ALT 98 Units/L (7-52) H 01/09/18 11:51 Alkaline Phosphatase 223 Units/L (34-104) H 01/09/18 11:51 Urine Protein 30 mg/dL (Neg-Trace) H 01/07/18 23:40 Urine Ketones Trace mg/dL (Negative) H 01/07/18 23:40 Urine Bilirubin Small (Negative) H 01/07/18 23:40 Urine Urobilinogen 4.0 mg/dL (Normal) H 01/07/18 23:40 Urine Microscopic RBC 3-5 per hpf (0-3) H 01/07/18 23:40 Ur Squamous Epith Cells Moderate per lpf (None-Few) H 01/07/18 23:40 Diabetes panel 01/08/18 01/08/18 01/09/18 Range/Units 15:38 22:36 11:51 Sodium 135 L 133 L 137 (136-145) mEq/L Potassium 3.5 (3.5-5.1) mEq/L Chloride 107 (98-107) mEq/L Carbon Dioxide 18 L (23-29) mEq/L BUN 20 (8-23) mg/dL Creatinine 1.09 (0.70-1.30) mg/dL Glucose 155 H (70-105) mg/dL Calcium 9.0 (8.6-10.3) mg/dL AST 97 H (13-39) Units/L ALT 98 H (7-52) Units/L Alkaline Phosphatase 223 H (34-104) Units/L Albumin 3.6 (3.5-5.7) g/dL Calcium panel 01/09/18 Range/Units 11:51 Calcium 9.0 (8.6-10.3) mg/dL Albumin 3.6 (3.5-5.7) g/dL Pituitary panel 01/08/18 01/08/18 01/09/18 Range/Units 15:38 22:36 11:51 Sodium 135 L 133 L 137 (136-145) mEq/L Potassium 3.5 (3.5-5.1) mEq/L Chloride 107 (98-107) mEq/L Carbon Dioxide 18 L (23-29) mEq/L BUN 20 (8-23) mg/dL Creatinine 1.09 (0.70-1.30) mg/dL Glucose 155 H (70-105) mg/dL Calcium 9.0 (8.6-10.3) mg/dL Adrenal panel 01/08/18 01/08/18 01/09/18 Range/Units 15:38 22:36 11:51 Sodium 135 L 133 L 137 (136-145) mEq/L Potassium 3.5 (3.5-5.1) mEq/L Chloride 107 (98-107) mEq/L Carbon Dioxide 18 L (23-29) mEq/L BUN 20 (8-23) mg/dL Creatinine 1.09 (0.70-1.30) mg/dL Glucose 155 H (70-105) mg/dL Calcium 9.0 (8.6-10.3) mg/dL Total Bilirubin 1.3 H (0.3-1.0) mg/dL AST 97 H (13-39) Units/L ALT 98 H (7-52) Units/L Alkaline Phosphatase 223 H (34-104) Units/L Albumin 3.6 (3.5-5.7) g/dL All other labs normal. Consult Discharge Plan - Plan Referrals: John Schumacher DO [Primary Care Provider] - 01/13/18 1:45 pm
--- NOTE | 2018-01-09 14:34 | Electrocardiograph Report ---
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
--- NOTE | 2018-01-09 14:42 | Electrocardiograph Report ---
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
[2018-01-09] MEDS ORDERED: Insulin LISPRO 300 UNITS/3 ML VIAL SQ SCH (21:00)
[2018-01-10] MEDS: OXYCODONE Oral CONC 10 MG/0.5 ML ORAL.SYG SL PRN ×3 (02:07→17:43)
[2018-01-10] MEDS: cefOXitin 1,000 MG in Water for inj. (sterile) 20 ML 10 ML IVPB SCH ×3 (02:07→19:28)
[2018-01-10] MEDS: *HR* Heparin 5,000 UNIT/ML VIAL SQ SCH ×2 (04:58→18:05)
[2018-01-10] MEDS: Insulin LISPRO 300 UNITS/3 ML VIAL SQ SCH ×3 (08:21→18:23)
[2018-01-10] MEDS: Metoprolol XL (24 HR) Succ 50 MG TAB.ER.24H PO SCH (08:28)
[2018-01-10] MEDS: Isosorbide MONOnitrate (24 HR) 30 MG TAB.ER.24H PO SCH (08:28)
[2018-01-10] MEDS: Aspirin 81 MG TAB.CHEW PO SCH (08:28)
[2018-01-10] MEDS: Gabapentin 300 MG CAPSULE PO SCH ×3 (08:28→19:47)
[2018-01-10] MEDS: Pantoprazole 40 MG VIAL IVP SCH (08:29)
--- NOTE | 2018-01-10 14:36 | Anesthesia Evaluation PreOp ---
Date of Encounter: 01/10/18 Time of Encounter: 14:33 - Past History Planned Operation: Lap. Annemarie Cardiac History: Denies any Significant Hx ( L ureteroscopic stone extraction Cardiac History: IN, HTN Pulmonary History: Denies Any Significant HX WARP DYEING VAT [employer]ER History: Denies Any Significant HX Other Medical History: Renal (calculus, hydronephrosis), Diabetes Type II Anesthesia History: No Prior Anesthetic Complications, Past Anesthesia (several fernando shoulder sx, sinus) Alcohol Use: occasionally Drug use: none), IN (2008), HTN, Cardiac Stent (2008) Pulmonary History: Denies Any Significant HX WARP DYEING VAT TENDER History: Denies Any Significant HX Other Medical History: Renal (stone), Diabetes Type II Anesthesia History: No Prior Anesthetic Complications, Past Anesthesia (several fernando shoulder sx, sinus, Sone extraction) Alcohol Use: occasionally Drug use: none Medications and Allergies Aspirin 81 mg PO DAILY 12/21/15 [History] Atorvastatin Calcium [Lipitor] 80 mg PO DAILY 12/21/15 [History] Cholecalciferol (Vitamin D3) [Vitamin D3] 2,000 unit PO DAILY 12/21/15 [History] Gabapentin [Neurontin] 300 mg PO TID 12/21/15 [History] Ibuprofen [Advil] 400 mg PO DAILY PRN 12/21/15 [History] Lisinopril [Zestril] 10 mg PO DAILY 12/21/15 [History] Zolpidem [Ambien] 10 mg PO HS PRN 12/21/15 [History] metFORMIN [Glucophage] 500 mg PO DAILY 12/21/15 [History] Isosorbide MONOnitrate (24 HR) [Imdur] 30 mg PO DAILY 01/08/18 [History] Metoprolol XL (24 HR) Succ [Toprol XL] 50 mg PO DAILY 01/08/18 [History] Omeprazole [PriLOSEC] 20 mg PO DAILY 01/08/18 [History] Oxycodone HCl/Acetaminophen [Percocet 5-325 mg Tablet] 1 tab PO DAILY PRN [History] 3 Allergy/AdvReac Type Severity Reaction Status Date / Time No Known Allergies Allergy Verified 12/19/15 16:15 - Meds/Allergy Pre-op Review Medications Reviewed: Yes Allergies Reviewed: Yes Beta Blockers on Current Med List: Yes If Beta Blockers taken, Date/Time (Last Dose taken): 01/10/18 @ 08:28 Anesthesia Results - Labs 01/08/18 05:00 01/09/18 11:51 Echocardiogram Name: Jb Campos Date of Study: 08/17/2017 Impressions: LVEF 60-65%. Mild left ventricular diastolic dysfunction. Visually, there is concentric increase in LV wall thickness - measurements not well obtained. Normal right ventricular structure and function. Mild aortic regurgitation. No pulmonary hypertension. - Imaging EKG: report reviewed (PROBABLE INFERIOR MYOCARDIAL INFARCTION, PROBABLY OLD WITH POSTERIOR EXTENSION) Anesthesia Exam O2 Sat Weight 110.8 kg O2 Sat by Pulse Oximetry 95 O2 Sat by Pulse Oximetry 95 O2 Sat by Pulse Oximetry 92 O2 Sat by Pulse Oximetry 95 O2 Sat by Pulse Oximetry 90 O2 Sat by Pulse Oximetry 91 Vital Signs Temp Pulse Resp BP Pulse Ox 98.4 F 83 18 120/78 95 01/07/18 23:15 01/07/18 23:15 01/07/18 23:15 01/07/18 23:15 01/07/18 23:15 Vital Signs/O2 Sat, Most Current Temp Pulse Resp BP Pulse Ox 98.1 F 63 14 115/66 95 01/10/18 11:35 01/10/18 11:35 01/10/18 11:35 01/10/18 11:35 01/10/18 11:35 NPO (# of Hours): > 8 hrs Pain Scale: 0 Pain Scale Used: Numeric (1 - 10) - HEENT Pupil (Motor): Pupils equal, EOMI Mallampati: IV Teeth: Normal Oral Opening: Greater than 3 - WARP DYEING VAT TENDER LOC: Oriented WARP DYEING VAT TENDER Motor: Normal RUE, Normal LUE, Normal RLE, Normal LLE, Normal Face WARP DYEING VAT TENDER Sensory: Normal: RUE, LUE, RLE, LLE, Face - Cardiac Rhythm: Regular Murmur: None JVD: No Carotid Bruit: No - Pulmonary Breath Sounds: bilateral Clear Respiratory Effort: Symmetrical Anesthesia Assess/Plan ASA Score: 3 Modified Keaton Scale for Level of Consciousness: Cooperative, oriented, and tranquil Anesthetic Plan: General Autologous Blood: Yes Monitoring Plan: Standard Monitors Recovery Plan: PACU
[2018-01-10] MEDS ORDERED: Isovue-300 50 ML VIAL IVP ONE (14:46)
[2018-01-10] MEDS ORDERED: Bupivacaine/EPI 1:200k 0.25%PF 30 ML VIAL ONE (14:47)
[2018-01-10] MEDS ORDERED: *HR* Propofol 200 MG/20 ML VIAL IVP ONE (14:49)
[2018-01-10] MEDS ORDERED: Ondansetron 4 MG/2 ML VIAL ONE (14:51)
[2018-01-10] MEDS ORDERED: Lidocaine -MPF 2% 2 ML VIAL ONE (14:51)
[2018-01-10] MEDS ORDERED: *HR* Rocuronium Bromide 50 MG/5 ML VIAL ONE (14:51)
[2018-01-10] MEDS ORDERED: *HR* Succinylcholine 200 MG/10 ML VIAL IVP ONE (14:51)
[2018-01-10] MEDS ORDERED: Dexamethasone 4 MG/ML VIAL ONE (14:51)
[2018-01-10] MEDS ORDERED: *HR* FentaNYL (PF) 100 MCG/2 ML VIAL ONE ×2 (14:51→15:40)
[2018-01-10] MEDS ORDERED: Lidocaine -MPF 4% 5 ML AMPUL ONE (14:54)
[2018-01-10] MEDS ORDERED: *HR* PHENYLEPHRINE 1,000 MCG/10 ML SYRINGE IVP ONE (15:33)
[2018-01-10] MEDS ORDERED: EPHEDrine 50 MG/ML VIAL ONE (15:35)
[2018-01-10] MEDS ORDERED: *HR* Labetalol 100 MG/20 ML MDV IVP PRN (15:52)
[2018-01-10] MEDS ORDERED: *HR* OxyCODONE Immed Rel 5 MG TABLET PO PRN (15:52)
[2018-01-10] MEDS ORDERED: Dexamethasone 4 MG/ML VIAL IVP ONE (15:52)
[2018-01-10] MEDS ORDERED: *HR* Promethazine 25 MG/ML VIAL IVP PRN (15:52)
[2018-01-10] MEDS ORDERED: MORPHINE SUL Oral CONC 10 MG/0.5 ML ORAL.SYG SL PRN (15:52)
[2018-01-10] MEDS ORDERED: Neostigmine Methylsulfate 3 MG/3 ML SYRINGE ONE (16:02)
--- NOTE | 2018-01-10 17:11 | Operative Note ---
Date of procedure: 01/10/18 Pre-op diagnosis: Cholelithiasis, biliary colic, umbilical hernia Post-op diagnosis: other (Acute cholecystitis, cholelithiasis, umbilical hernia) Procedure: Laparoscopic cholecystectomy, intra-abdominal cholangiogram; suture closure umbilical hernia Complications: None apparent Anesthesia: GETA Local Anesthetics: 0.25% Sensorcaine HCL with Epinephrine 1:200,000 SubQ (cc) ( 28 mL) Surgeon: Guille Jim Was there an assistant professor of economics present: No Estimated blood loss (cc): 10 IV fluids (cc): 900 Specimen: gallbladder Condition: stable Disposition: PACU Procedure in Detail: The patient was brought to the operating room where he was placed supine on the procedure table. The patient was appropriately identified as to person and procedure. The accuracy of this information was confirmed by the patient and the procedure team. The patient was then intubated and anesthetized under the supervision of Dr. New Bateamn. The abdomen was prepped and draped in the usual sterile fashion. A prominent umbilical hernia was evident. Due to the presence of the umbilical hernia, the initial laparoscopic approach was completed in the right upper quadrant midclavicular line. Several milliliters of 0.25% bupivacaine with 1-200,000 units epinephrine was infiltrated into the anterior abdominal wall right upper quadrant, midclavicular line, just caudal to the costal margin. A small transverse incision was made. The abdominal wall was grasped and elevated. A 5 mm Xcel port was established. The rigid laparoscope was placed within the obturator to visualize passage through the layers of the anterior abdominal wall. Once the abdominal cavity was accessed, the obturator was replaced by the rigid laparoscope, the abdomen was insufflated with gaseous carbon dioxide. There was no obvious visible injury from establishing this port. The umbilical hernia was visualized. There were no intraperitoneal contents prolapsing through the fascial defect. The tissue palpable within the umbilical hernia was preperitoneal fat. Under direct visualization, a supraumbilical port was established. The rigid laparoscope was shifted to this location to visualize placement of the remaining ports in the subxiphoid and anterior axillary line along the costal margin. Each port site was infiltrated with the 0.25% bupivacaine/epinephrine solution. The gallbladder was tensely distended with omentum densely adherent to it. The gallbladder was aspirated with an endoscopic needle evacuating approximately 60 mL of a light green turbid fluid. The gallbladder wall was slightly thickened but once the gallbladder was decompressed it was possible to grasp retractthe gallbladder. The adherent omentum was dissected with the aid of the Ethicon harmonic krissy. This allowed visualization of the hepatoduodenal ligament which was then dissected until the cystic duct was skeletonized. The cystic duct was clipped near the infundibulum of the gallbladder. The cystic artery was skeletonized, clipped twice proximally, and clipped once distally. A Taut cholangiogram catheter was introduced via a separate percutaneous insertion site. The cystic duct was incised, the cholangiogram catheter inserted. Using C-arm fluoroscopy, a cholangiogram was then completed. This demonstrated a normal-appearing hepatobiliary tree with no filling defects. There was free flow of contrast into the duodenum. Dr. Boykin, [facility], provided an intraoperative reading identifying no obvious pathology. The cholangiogram catheter was removed. The cystic duct was clipped twice, and divided. The cystic artery was divided. The gallbladder was dissected from the liver bed using Ethicon harmonic krissy. Once from the liver bed, the gallbladder was placed in an endoscopic pouch and removed via the supraumbilical port site. The gallbladder was retrieved and sent to pathology. The liver bed was inspected. Adequate hemostasis was aided by applying Feli to the gallbladder fossa. The rigid laparoscope was shifted to the subxiphoid port to visualize dissection of the preperitoneal fat from the prominent umbilical hernia. Laparoscopic observation was used to verify no bowel or intraperitoneal contents were included in this suture repair. The fascia edges of the umbilical hernia were approximated with interrupted [id number] 0 Vicryl. The fascia was infiltrated with additional 0.25% bupivacaine with epinephrine. The skin edges of the port sites were approximated with subcuticular 4-0 Vicryl. Incisions were sealed with Dermabond dermal adhesive. The patient was taken to recovery in stable condition. Needle, sponge, and instrument counts were correct at the close of the case. Total volume of 0.25% bupivacaine with 1-200,000 epinephrine, 28 mL.
[2018-01-10] MEDS ORDERED: Ringers Solution, Lactated 1,000 ML ONE (17:14)
--- NOTE | 2018-01-10 17:53 | Anesthesia Evaluation Post Op ---
Date of Encounter: 01/10/18 Time of Encounter: 17:53 - Vital Signs Vital Signs: Vital Signs/O2 Sat, Most Current Temp Pulse Resp BP Pulse Ox 97.0 F L 72 16 156/89 95 01/10/18 17:14 01/10/18 17:34 01/10/18 17:34 01/10/18 17:34 01/10/18 17:34 - Lungs Lungs: Clear Ascult./Percussion - Airway Airway: Non-obstructed - Cardiovascular Regular Rate - Mental Status Mental Status: Alert & Oriented, Answers Appropriately - Pain Pain Scale: 0 Pain Scale used: Numeric (1 - 10) - Nausea Vomiting Nausea Vomiting: Not Present - Hydration Hydration: Ice chips, Has not voided - Discharge PostOp Status: Transfer Patient to floor
[2018-01-10] MEDS ORDERED: Acetaminophen 325 MG TABLET PO PRN (18:27)
[2018-01-10] MEDS ORDERED: Ringers Solution, Lactated 500 ML IVC ONE (18:27)
[2018-01-10] MEDS ORDERED: Ondansetron 4 MG/2 ML VIAL IVP PRN (18:27)
[2018-01-10] MEDS ORDERED: *HR* Dextrose 50 % in Water (Syg) 50 ML SYRINGE IVP PRN (18:27)
[2018-01-10] MEDS ORDERED: D5% in Water 1,000 ML IVC PRN (18:27)
[2018-01-10] MEDS ORDERED: Dextrose Gel 15 GM/37.5 ML TUBE PO PRN (18:27)
[2018-01-10] MEDS ORDERED: Naloxone 0.4 MG/ML INJ IVP PRN (18:27)
--- NOTE | 2018-01-10 19:40 | Internal Med Progress Note ---
Date of Encounter: 01/10/18 Time of Encounter: 12:00 - Assessment and plan (1) Acute cholecystitis Current Visit: Yes Status: Suspected Assessment and plan: Originally presented with nausea vomiting right upper quadrant abdominal pain positive Escobedo sign. CT of abdomen and pelvis showed lobulated folded gallbladder appearance hepatic steatosis gallbladder ultrasound shows cholelithiasis without evidence of acute cholecystitis Initially he had elevated AST ALTs alkaline phosphatase lipase was within normal limits. He was seen by surgery and requested cardiac clearance prior to cholecystectomy. He was seen by cardiology and was cleared for surgery. Patient is to have cholecystectomy today per Dr. au (2) Hyponatremia Current Visit: Yes Status: Resolved Assessment and plan: improving. continue to monitor (3) HTN (hypertension) Current Visit: Yes Status: Chronic Assessment and plan: Stable continue home medications Qualifiers: Hypertension type: essential hypertension Qualified Code(s): I10 - Essential (primary) hypertension (4) DM type 2 (diabetes mellitus, type 2) Current Visit: Yes Status: Chronic Assessment and plan: Cardiac ADA diet once able to tolerate oral intake Monitor blood glucose before meals at bedtime insulin sliding scale Qualifiers: Diabetes mellitus oysterman insulin use: without half-way use Diabetes mellitus complication status: with unspecified complications Qualified Code(s) : E11.8 - Type 2 diabetes mellitus with unspecified complications (5) Chest pain Current Visit: Yes Status: Resolved Assessment and plan: Reason and with chest pain atypical troponon WNL EKG: NSR with out st-t wave elevation previous [facility] 08/17/2017 LVEF of 60-65% with mild left ventricular diastolic dysfunction, without wall motion abnormalities, concentric increase in left ventricular wall thickness, mild aortic regurgitation and dilated ascending aorta measuring 4.0 cm. chest cta negative for dissection or worsening ascending aortic aneurism stress test negative for ischemia cardiology reports patient intermediate risk for angélica-operative cardiovascular complication Continue aspirin, statin, Imdur, metoprolol, lisinopril. Patient is to undergo cholecystectomy Qualifiers: Chest pain type: unspecified Qualified Code(s): R07.9 - Chest pain, unspecified (6) Biliary colic Current Visit: Yes Status: Acute Assessment and plan: Patient has been seen by surgery and will undergo cholecystectomy today (7) DVT prophylaxis Current Visit: Yes Status: Acute Assessment and plan: heparin sq - Time Spent With Patient Total time spent is greater than 50% in coordination of care (as documented) at patient's floor/unit and/or counseling patient: - Constitutional Vitals: Temp Pulse Resp BP Pulse Ox 98.4 F 75 17 136/86 95 01/10/18 18:56 01/10/18 18:56 01/10/18 18:56 01/10/18 18:56 01/10/18 18:56 General appearance: Present: cooperative, mild distress, A&O X 3, pleasant, answers questions appropriately - Head Head exam: Present: atraumatic, normocephalic - Eye Eye exam: Present: PERRL, conjuntiva pink, sclera anicteric Pupils: Present: PERRL - Neck Neck exam general surgery: Present: supple, trachea midline. Absent: lymphadenopathy - Respiratory Respiratory exam: Present: CTAB. Absent: accessory muscle use, rales, rhonchi, wheezes - Cardiovascular Cardiovascular exam: Present: RRR, +S1, +S2. Absent: diastolic murmur, gallop, rubs, systolic murmur - GI/Abdominal GI/Abdominal exam: Present: normal bowel sounds, soft, no peritoneal signs. Absent: distended, tenderness - Extremities Exam Extremities exam: Present: warm, radial pulses palpable and symmetrical. Absent : calf tenderness, cyanotic, pedal edema - Neurological Exam Neurological exam: Present: CN II-XII intact, oriented X3, no focal deficits. Absent: pronater drift, facial droop, speech deficit - Skin Skin exam: Present: dry, intact Internal Medicine: Result - Labs CBC & Chem 7: 01/08/18 05:00 01/09/18 11:51 - ABG Interpretation ABG results: PT/INR, D-dimer PT 12.2 Seconds (9.4-12.1) H 01/08/18 13:39 - Impressions Impressions Cholangiogram,Operative 01/10/18 14:57 IMPRESSION: Intraoperative cholangiogram as described above. D/ / Kannan Oneil MD / Kannan Oneil MD Interpreting Provider: Kannan Oneil MD Consult Discharge Plan - Plan Referrals: John Schumacher DO [Primary Care Provider] - 01/13/18 1:45 pm
[2018-01-10] MEDS: Ringers Solution, Lactated 1,000 ML IVC SCH (19:41)
[2018-01-10] MEDS: *HR* OxyCODONE/APAP 5/325 TABLET PO PRN (19:46)
[2018-01-10] MEDS ORDERED: Insulin LISPRO 300 UNITS/3 ML VIAL SQ SCH (21:00)
[2018-01-11] MEDS: *HR* OxyCODONE Immed Rel 5 MG TABLET PO PRN ×2 (01:01→15:28)
[2018-01-11] MEDS ORDERED: *HR* FentaNYL (PF) 100 MCG/2 ML VIAL IVP ONE (04:06)
[2018-01-11] MEDS ORDERED: 0.9 % Sodium Chloride 1,000 ML IVC SCH (08:15)
[2018-01-11 08:23] LABS: Hematocrit 31.3 % (37.5-50.1); Mean Corpuscular HGB Conc 33.9 g/dL (31.6-35.5); Mean Corpuscular Hemoglobin 31.3 pg (28.0-33.3); Mean Corpuscular Volume 92.3 fL (83.0-100.0); Mean Platelet Volume 10.2 fL (9.4-12.4); Platelet Count 196 K/mcL (140-400); Red Blood Count 3.39 M/mcL (4.19-5.50); Red Cell Distribution Width 12.9 % (11.5-14.5)
[2018-01-11 08:30] LABS: Hemoglobin 10.6 g/dL (12.9-16.9)
[2018-01-11 08:53] LABS: Eosinophils # 0.2 K/mcL (0.0-0.6); Lymphocytes # 1.1 K/mcL (0.6-4.6); Monocytes # 0.4 K/mcL (0.0-1.3); Neutrophils # 7.3 K/mcL (1.6-8.9); Platelet Estimate Normal (Normal)
[2018-01-11] MEDS ORDERED: Metoprolol XL (24 HR) Succ 50 MG TAB.ER.24H PO SCH ×2 (09:00)
[2018-01-11] MEDS ORDERED: *HR* Metformin 500 MG TABLET PO SCH (09:00)
[2018-01-11] MEDS ORDERED: Aspirin 81 MG TAB.CHEW PO SCH (09:00)
[2018-01-11] MEDS ORDERED: Isosorbide MONOnitrate (24 HR) 30 MG TAB.ER.24H PO SCH (09:00)
[2018-01-11] MEDS: Gabapentin 300 MG CAPSULE PO SCH ×2 (09:00→15:23)
[2018-01-11] MEDS: *HR* OxyCODONE/APAP 5/325 TABLET PO PRN (09:01)
[2018-01-11] MEDS: Insulin LISPRO 300 UNITS/3 ML VIAL SQ SCH ×2 (09:03→11:42)
[2018-01-11 09:06] LABS: Alanine Aminotransferase 120 Units/L (7-52); Albumin 2.8 g/dL (3.5-5.7); Albumin/Globulin Ratio 1.1 (1.1-2.2); Alkaline Phosphatase 229 Units/L (34-104); Aspartate Amino Transferase 107 Units/L (13-39); BUN/Creatinine Ratio 18 (6-26); Bilirubin,Total 0.8 mg/dL (0.3-1.0); Blood Urea Nitrogen 22 mg/dL (8-23); Carbon Dioxide 14 mEq/L (23-29); Chloride 105 mEq/L (98-107); Globulin 2.6 g/dL (2.4-3.5); Glucose 198 mg/dL (70-105); Osmolality,Calculated 279 (280-300); Potassium 4.1 mEq/L (3.5-5.1); Sodium 130 mEq/L (136-145); Total Protein 5.4 g/dL (6.4-8.9); eGFR For African Americans > 60 (> 60); eGFR For Non-African Americans 56 (> 60)
[2018-01-11 10:51] VITALS: BP 109/66
[2018-01-11] MEDS: Ringers Solution, Lactated 1,000 ML IVC SCH (11:42)
--- NOTE | 2018-01-11 13:14 | Internal Med Progress Note ---
Date of Encounter: 01/11/18 Time of Encounter: 12:30 - Assessment and plan (1) Acute cholecystitis Current Visit: Yes Status: Suspected (2) Hyponatremia Current Visit: Yes Status: Resolved (3) HTN (hypertension) Current Visit: Yes Status: Chronic Qualifiers: Hypertension type: essential hypertension Qualified Code(s): I10 - Essential (primary) hypertension (4) DM type 2 (diabetes mellitus, type 2) Current Visit: Yes Status: Chronic Qualifiers: Diabetes mellitus manager terminal insulin use: without manager terminal use Diabetes mellitus complication status: with unspecified complications Qualified Code(s) : E11.8 - Type 2 diabetes mellitus with unspecified complications (5) Chest pain Current Visit: Yes Status: Resolved Qualifiers: Chest pain type: unspecified Qualified Code(s): R07.9 - Chest pain, unspecified (6) Biliary colic Current Visit: Yes Status: Acute (7) DVT prophylaxis Current Visit: Yes Status: Acute - Time Spent With Patient Total time spent is greater than 50% in coordination of care (as documented) at patient's floor/unit and/or counseling patient: - Constitutional Vitals: Temp Pulse Resp BP Pulse Ox 97.7 F 91 15 109/66 90 01/11/18 10:45 01/11/18 10:45 01/11/18 10:45 01/11/18 10:45 01/11/18 10:45 General appearance: Present: cooperative, mild distress, A&O X 3, pleasant, answers questions appropriately Internal Medicine: Result - Labs CBC & Chem 7: 01/11/18 06:57 01/11/18 06:57 Labs: Short CBC 01/11/18 Range/Units 06:57 WBC 8.9 D (4.3-11.1) K/mcL Hgb 10.6 L D (12.9-16.9) g/dL Hct 31.3 L (37.5-50.1) % Plt Count 196 D (140-400) K/mcL Neutrophils # 7.3 (1.6-8.9) K/mcL BMP 01/11/18 06:57 Sodium 130 L Potassium 4.1 Chloride 105 Carbon Dioxide 14 L BUN 22 Creatinine 1.25 Glucose 198 H Calcium 8.0 L Liver Function 01/11/18 Range/Units 06:57 Total Bilirubin 0.8 (0.3-1.0) mg/dL AST 107 H (13-39) Units/L ALT 120 H (7-52) Units/L Alkaline Phosphatase 229 H (34-104) Units/L Albumin 2.8 L (3.5-5.7) g/dL - ABG Interpretation ABG results: PT/INR, D-dimer PT 12.2 Seconds (9.4-12.1) H 01/08/18 13:39 - Impressions Impressions Cholangiogram,Operative 01/10/18 14:57 IMPRESSION: Intraoperative cholangiogram as described above. D/ / Kannan Oneil MD / Kannan Oneil MD Interpreting Provider: Kannan Oneil MD - VTE Documentation of Mechanical Device: Intermittent pneumatic compression device Consult Discharge Plan - Plan Referrals: John Schumacher DO [Primary Care Provider] - 01/13/18 1:45 pm
--- NOTE | 2018-01-11 14:23 | General Surgery Progress Note ---
Date of Encounter: 01/11/18 Time of Encounter: 14:13 Subjective Narrative: General Surgery - POD #1 Patient feeling much improved; denies any significant abdominal pain. Preoperative symptoms are resolved. The patient has been afebrile, currently 97.7, pulse 91-97, respirations 15 and nonlabored, blood pressure 100/66. Lungs: Clear, no obvious pain on deep inspiration Abdomen: Protuberant but nontender. Active bowel sounds. Port sites intact with some minimal ecchymoses; no erythema or drainage Intra umbilical port with much greater ecchymoses consistent with incidental repair of periumbilical hernia along with the cholecystectomy Labs: White count 8.9, hemoglobin 10.6 with hematocrit 31.3 - decrease most likely due to perioperative fluid/dilution Thrombocytopenia resolved, platelet count currently 196,000 Sodium 1:30, potassium 4.1, BUN 22, creatinine 1.25; eGFR 56 Bilirubin 0.8; AST 107, ALT 120, alkaline phosphatase 229. The elevated LFTs most likely reactive to the surgery completed yesterday Impression: Postoperative day 1, status post laparoscopic cholecystectomy with intraoperative cholangiogram for acute and chronic cholecystitis, cholelithiasis with biliary colic. Incidental repair of periumbilical hernia. Operative pathology pending. Patient feeling significantly improved postop. Status post sufficient for discharge home. Discussed with Melva Zuniga CNP Chronic back and shoulder pain CAD with prior NC; no acute cardiac changes at present time Diabetes mellitus Hypertension History of renal stones Diverticulosis Objective Vital Signs - Last 8 Hours Temp Pulse Resp BP Pulse Ox 01/11/18 10:45 97.7 F 91 15 109/66 90 01/11/18 07:26 97.7 F 97 15 92/66 92 Intake and Output 01/10/18 01/11/18 01/11/18 23:59 07:59 15:59 Intake Total 120 / 120 480 / 480 1120 / 1120 Output Total 100 / 100 Balance 110 / 110 380 / 380 1120 / 1120 Intake: IV Fluids 1000 / 1000 Lactated Ringers 1,000 ML @ 75 1000 / 1000 mls/hr IVC .[id number] EMILIANA Rx#: [id number] Oral 120 / 120 480 / 480 120 / 120 Output: Urine 100 / 100 Estimated Blood Loss Other: Meal Dinner Breakfast Percent of Meal Consumed 10% 35% Weight 111.9 kg Blood Glucose* 176 175 166 Patient Weight 01/11/18 23:59 Weight 111.9 kg - Labs 01/11/18 06:57 01/11/18 06:57 Diabetes panel 01/11/18 Range/Units 06:57 Sodium 130 L (136-145) mEq/L Potassium 4.1 (3.5-5.1) mEq/L Chloride 105 (98-107) mEq/L Carbon Dioxide 14 L (23-29) mEq/L BUN 22 (8-23) mg/dL Creatinine 1.25 (0.70-1.30) mg/dL Glucose 198 H (70-105) mg/dL Calcium 8.0 L (8.6-10.3) mg/dL AST 107 H (13-39) Units/L ALT 120 H (7-52) Units/L Alkaline Phosphatase 229 H (34-104) Units/L Albumin 2.8 L (3.5-5.7) g/dL Calcium panel 01/11/18 Range/Units 06:57 Calcium 8.0 L (8.6-10.3) mg/dL Albumin 2.8 L (3.5-5.7) g/dL Pituitary panel 01/11/18 Range/Units 06:57 Sodium 130 L (136-145) mEq/L Potassium 4.1 (3.5-5.1) mEq/L Chloride 105 (98-107) mEq/L Carbon Dioxide 14 L (23-29) mEq/L BUN 22 (8-23) mg/dL Creatinine 1.25 (0.70-1.30) mg/dL Glucose 198 H (70-105) mg/dL Calcium 8.0 L (8.6-10.3) mg/dL Adrenal panel 01/11/18 Range/Units 06:57 Sodium 130 L (136-145) mEq/L Potassium 4.1 (3.5-5.1) mEq/L Chloride 105 (98-107) mEq/L Carbon Dioxide 14 L (23-29) mEq/L BUN 22 (8-23) mg/dL Creatinine 1.25 (0.70-1.30) mg/dL Glucose 198 H (70-105) mg/dL Calcium 8.0 L (8.6-10.3) mg/dL Total Bilirubin 0.8 (0.3-1.0) mg/dL AST 107 H (13-39) Units/L ALT 120 H (7-52) Units/L Alkaline Phosphatase 229 H (34-104) Units/L Albumin 2.8 L (3.5-5.7) g/dL - VTE Documentation of Mechanical Device: Intermittent pneumatic compression device Consult Discharge Plan - Plan Referrals: John Schumacher DO [Primary Care Provider] - 01/13/18 1:45 pm
--- NOTE | 2018-01-11 15:22 | Discharge Summary ---
- NOTES TO OUTPATIENT PROVIDER Notes to Outpatient Provider: Had some hyponatremia,will need to monitor chem 7 - did hold lisinopril dt low BP- evaluate and adjust Orders not resulted at time of discharge: Pending orders 01/08/18 18:19 NM anuj perf SPECT multi [NM] Routine 01/10/18 16:17 Surgical Pathology [PTH] Routine Date of Encounter: 01/11/18 Time of Encounter: 15:14 - Discharge Diagnosis (1) Acute cholecystitis Priority: Primary Status: Suspected (2) Hyponatremia Priority: Secondary Status: Acute (3) HTN (hypertension) Priority: Secondary Status: Chronic Qualifiers: Hypertension type: essential hypertension Qualified Code(s): I10 - Essential (primary) hypertension (4) DM type 2 (diabetes mellitus, type 2) Priority: Secondary Status: Chronic Qualifiers: 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 Campos is a 77 year old male past medical hx of CAD with prior [place] status post coronary stents DM long standing periumbilical hernia HTN [place] renal disease -Patient presented with idigestion like chest pain for approx one week CT abd / pelvis showed no bowel obstruction but did show lobulated and folded appearance of the gallbladder. Surgery was consulted Dr Jim for cholethiasis He was seen by cardiology for surgical clearance. He underwent a cardiac stress test which was negative for any ischemia or infarct. He also experienced hyponatremia, which was corrected. He underwent laparoscopic cholecystectomy ,intra abdominal cholangiogram on 01/10/2018. He tolerated procedure well. Post op he has been tolerating oral intake passing gas and urinating . Pain has been controlled. Hgb and sodium decreased however this is most likely perioperative dilution. I did review case with DR Jim who agrees with discharge, and to have patient follow up next . He will follow up with DR Schumacher on Tuesday01/13/2017. I did review this case with Dr Dixon who agrees with plan. I advised to patient to hold tomorrow lisinopril and gave parameters for metoprolol. He verbalized understanding. Patient is ready for discharge Discharge discussed with: patient - Time Spent with Patient Total time spent providing and/or coordinating discharge services: - Discharge Medications Prescriptions: OxyCODONE/APAP 5/325 [Percocet 5/325 MG] 1 each PO Q6HR PRN 4 Days #16 tablet PRN Reason: pain not relieved by Tylenol Home Medications: Aspirin 81 mg PO DAILY 12/21/15 [History] Atorvastatin Calcium [Lipitor] 80 mg PO DAILY 12/21/15 [History] Cholecalciferol (Vitamin D3) [Vitamin D3] 2,000 unit PO DAILY 12/21/15 [History] Gabapentin [Neurontin] 300 mg PO TID 12/21/15 [History] Ibuprofen [Advil] 400 mg PO DAILY PRN 12/21/15 [History] Lisinopril [Zestril] 10 mg PO DAILY 12/21/15 [History] Zolpidem [Ambien] 10 mg PO HS PRN 12/21/15 [History] metFORMIN [Glucophage] 500 mg PO DAILY 12/21/15 [History] Isosorbide MONOnitrate (24 HR) [Imdur] 30 mg PO DAILY 01/08/18 [History] Metoprolol XL (24 HR) Succ [Toprol Xl] 50 mg PO DAILY 01/08/18 [History] Omeprazole [PriLOSEC] 20 mg PO DAILY 01/08/18 [History] Oxycodone HCl/Acetaminophen [Percocet 5-325 mg Tablet] 1 tab PO DAILY PRN [History] OxyCODONE/APAP 5/325 [Percocet 5/325 MG] 1 each PO Q6HR PRN 4 Days #16 tablet [Rx] Allergies/Adverse Reactions: 3 Allergy/AdvReac Type Severity Reaction Status Date / Time No Known Allergies Allergy Verified 12/19/15 16:15 Date of admission: 01/08/18 03:08 Primary care physician: John Schumacher Consults: 01/09/18 13:12 Consult to Surgery [CONS] Routine Consulting Provider: Surgery Riki Jim Reason for Consult: Possible gallbladder disease. Pt has seen Dr. Jim before and requests him to consult. Time Notified: 12:50 Call Completed: Yes Discharging clinician: Melva Zuniga Anticipated date of discharge: 01/11/18 - Constitutional Vitals: Temp Pulse Resp BP Pulse Ox 97.7 F 91 15 109/66 90 01/11/18 10:45 01/11/18 10:45 01/11/18 10:45 01/11/18 10:45 01/11/18 10:45 General appearance: Present: cooperative, mild distress, A&O X 3, pleasant, answers questions appropriately - Head Head exam: Present: atraumatic, normocephalic - Eye Eye exam: Present: PERRL, conjuntiva pink, sclera anicteric Pupils: Present: PERRL - Neck Neck exam general surgery: Present: supple, trachea midline. Absent: lymphadenopathy - Respiratory Respiratory exam: Present: CTAB. Absent: accessory muscle use, rales, rhonchi, wheezes - Cardiovascular Cardiovascular exam: Present: RRR, +S1, +S2. Absent: diastolic murmur, gallop, rubs, systolic murmur - GI/Abdominal GI/Abdominal exam: Present: normal bowel sounds, soft, no peritoneal signs. Absent: distended, tenderness - Extremities Exam Extremities exam: Present: warm, radial pulses palpable and symmetrical. Absent : calf tenderness, cyanotic, pedal edema - Neurological Exam Neurological exam: Present: CN II-XII intact, oriented X3, no focal deficits. Absent: pronater drift, facial droop, speech deficit - Skin Skin exam: Present: dry, intact - Patient Status Disposition: Home, Self-Care Condition: Good Functional capacity at discharge: independent ambulation Overall status at discharge: patient is back to baseline - Discharge Instructions Instructions: Diabetes Mellitus Type 2 in Adults (DC), Laparoscopic Cholecystectomy (DC), Chronic Hypertension (DC) Follow Up With: Guille Jim MD [Non-Partnered Physician] - John Schumacher DO [Primary Care Provider] - 01/13/18 1:45 pm - Diet and Activity Activity: other Diet: low fat, low cholesterol - VTE Documentation of Mechanical Device: Intermittent pneumatic compression device
== END 2018-01-11 16:09 | disposition home or self-care (01) | DRG 418 ==
LOC: 3BNU 23:12 → EMEROO 23:12 → SUATTDRO 01-08 03:08 → 3BNU 01-08 03:17
PROVIDERS: ADMIT Family Medicine; ATTEND Internal Medicine